=== PATIENT | male | born 1950 | race Caucasian/White ===

== ENCOUNTER 2018-09-16 11:42 | Observation (INO) | payer OTHER, SELFPAY ==
[2018-09-16 12:02] LABS: Absolute Lymphocytes (CBC) 2.9 K/uL (0.7-4.9); Absolute Monocytes 0.4 K/uL (0.1-1.3); Absolute Neutrophil 6.2 K/uL (1.8-8.0); Basophils % 0.8 % (0-1.3); Eosinophils % 0.4 % (0-4.4); Hematocrit 51.9 % (39.6-49.0); Lymphocytes % 30.2 % (15.3-44.8); MPV 10.9 fL (7.6-11.3); Monocytes % 3.9 % (3.3-12.3); RBC Red Blood Cell Count 5.62 M/uL (4.33-5.43)
[2018-09-16 12:06] LABS: Protime INR 0.88
[2018-09-16] MEDS ORDERED: NA CHLORIDE 0.9% 500 ML ONE (12:09)
[2018-09-16 12:26] LABS: ALT/SGPT 20 U/L (12-78); AST/SGOT 21 U/L (15-37); Albumin 3.8 g/dL (3.4-5.0); Alkaline Phosphatase 49 U/L (45-117); BUN Blood Urea Nitrogen 19 mg/dL (7-18); Bicarbonate 18 mmol/L (21-32); Bilirubin Direct < 0.1 mg/dL (0-0.2); Bilirubin Total 0.6 mg/dL (0.2-1.0); CKMB Creatine Kinase MB 1.6 ng/mL (0.3-3.6); Creatine Phosphokinase 107 U/L (39-308); Glucose Level 182 mg/dL (74-106); Lipase 241 U/L (73-393); Magnesium 2.5 mg/dL (1.8-2.4); Potassium 4.6 mmol/L (3.5-5.1); Protein, Total 7.5 g/dL (6.4-8.2); Sodium Level 140 mmol/L (136-145); Troponin (Emerg Dept Use Only) < 0.02 ng/mL (0.0-0.045)
--- NOTE | 2018-09-16 12:39 | RAD REPORT ---
EXAM DESCRIPTION: CT - Head Brain Wo Cont - 09/16/2018 12:21 pm CLINICAL HISTORY: Syncope COMPARISON: None TECHNIQUE: Computed axial tomography of the head was obtained. IV contrast was not requested. All CT scans are performed using dose optimization technique as appropriate and may include automated exposure control or mA/KV adjustment according to patient size. FINDINGS: An intracranial bleed is not seen . The ventricles are normal in caliber. No extra-axial fluid collection is noted. Mild low-density areas within periventricular, deep and sub cortical white matter likely represent ischemic changes secondary to small vessel disease. Fluid within the sinuses/ mastoids is not seen. IMPRESSION: No acute intracranial abnormality is seen. If patient's symptoms persist MRI of the bra in would be recommended.
--- NOTE | 2018-09-16 13:28 | ER ---
Nurse's Notes [facility] Name: Jax Flynn Age: 68 yrs Sex: Male : 1950 Arrival Date: 09/16/2018 Time: 11:46 Bed 3 Private MD: Diagnosis: Altered mental status, unspecified;Syncope and collapse Presentation: 09/16 11:40 Presenting complaint: EMS states: pt family/friends called EMS after pt was complaining sg of Chest Pain, became confused and fell to the ground, reports no LOC, but pt difficult to arouse, reports only responds to painful stimuli, EMS reports that a bag of marijuana was found on the pt in his pants, marijuana remains in the ED until PD can come to the department for collection. Transition of care: patient was not received from another setting of care. Onset of symptoms was September 16, 2018. Risk Assessment: Do you want to hurt yourself or someone else? Patient reports no desire to harm self or others. Initial Sepsis Screen: Does the patient meet any 2 criteria? No. Patient's initial sepsis screen is negative. Does the patient have a suspected source of infection? No. Patient's initial sepsis screen is negative. Care prior to arrival: None. 11:40 Method Of Arrival: EMS: [facility] sg 11:40 Acuity: GORDON 3 sg 11:45 Acuity: GORDON 2 hb Triage Assessment: 11:40 General: Appears in no apparent distress. slender, Behavior is drowsy, uncooperative. sv Pain: Unable to use pain scale. Patient is disoriented. Does not appear to understand pain scale. FLACC scale score is 0 out of 10. Neuro: Level of Consciousness is confused, lethargic, Moves all extremities. Full function. Respiratory: Airway is patent Respiratory effort is even, unlabored, Respiratory pattern is regular, symmetrical. Derm: Skin is normal. Historical: - Allergies: 12:05 No Known Allergies; sg - Home Meds: 12:05 Unable to obtain [Active]; sg - PMHx: 12:05 Unable to obtain; sg - PSHx: 12:05 Unable to obtain; sg - Immunization history:: Adult Immunizations unknown. - Social history:: Smoking status: Patient/guardian denies using tobacco. - Ebola Screening: : Patient negative for fever greater than or equal to 101.5 degrees Fahrenheit, and additional compatible Ebola Virus Disease symptoms Patient denies exposure to infectious person Patient denies travel to an Ebola-affected area in the 21 days before illness onset No symptoms or risks identified at this time. - Family history:: not pertinent. - Hospitalizations: : No recent hospitalization is reported. Screenin:00 Fall Risk No fall in past 12 months (0 pts). No secondary diagnosis (0 pts). IV access sv (20 points). Ambulatory Aid- None/Bed Rest/Nurse Assist (0 pts). Gait- Normal/Bed Rest/Wheelchair (0 pts) Mental Status- Overestimates/Forgets Limitations (15 pts.). Total Mcgowan Fall Scale indicates Low Risk Score (25-44 pts). Fall prevention measures have been instituted. Side Rails Up X 2 Placed close to Nursing Station Frequent Obs/Assesments occuring As available Patient and Family Educated on Fall Prevention Program and strategies. 14:27 Abuse screen: Denies threats or abuse. Denies injuries from another. Nutritional sv screening: No deficits noted. Tuberculosis screening: No symptoms or risk factors identified. Assessment: 12:00 Reassessment: [employer] at bedside speaking with the pt and obtaining the marijuana. sv 12:15 Neuro: Level of Consciousness is awake, alert, obeys commands, Oriented to person, sv place, time, situation, Moves all extremities. Full function. Respiratory: Airway is patent Respiratory effort is even, unlabored, Respiratory pattern is regular, symmetrical. 12:30 Reassessment: Patient appears in no apparent distress at this time. Patient and/or sv family updated on plan of care and expected duration. Pain level reassessed. Patient is alert, oriented x 3, equal unlabored respirations, skin warm/dry/pink. 13:38 Reassessment: Patient and/or family updated on plan of care and expected duration. Pain sv level reassessed. Patient is alert, oriented x 3, equal unlabored respirations, skin warm/dry/pink. GI: Pt is actively vomiting clear fluid. 14:00 Reassessment: Patient appears in no apparent distress at this time. Patient and/or sg family updated on plan of care and expected duration. Pain level reassessed. at bedside, awaiting a call back from Neftali LEROY at this time, pt states understanding. Vital Signs: 12:05 BP 170 / 92; Pulse 88; Resp 18; Temp 98.1(TE); Pulse Ox 98% on R/A; sg 12:26 BP 162 / 95; Pulse 67; Resp 18; Pulse Ox 99% ; sv 13:49 BP 142 / 88; Pulse 61; Resp 18; Pulse Ox 98% ; sv 14:28 BP 144 / 80; Pulse 62; Resp 18; Pulse Ox 97% ; sv ED Course: 11:40 Initial lab(s) drawn, by me, sent to lab. Inserted saline lock: 18 gauge in right sv forearm, using aseptic technique. Blood collected. Flushed right forearm with 5 ml normal saline. 11:40 Patient has correct armband on for positive identification. Bed in low position. Side sv rails up X2. Seizure precautions initiated. Pulse ox on. NIBP on. 11:46 Patient arrived in ED. rn 11:46 Francisco Babcock MD is Attending Physician. rn 12:00 Arm band placed on. sv 12:03 Triage completed. sg 12:16 Suellen Prieto RN is Primary Nurse. sv 12:21 CT completed. Pt tolerated procedure poorly. Patient moved to CT via stretcher. Patient eh moved back from CT. 12:22 CT Head Brain wo Cont In Process Unspecified. EDMS 12:29 Patient moved back from CT. sv 13:27 Elisha Colin MD is Hospitalizing Provider. rn 14:27 No provider procedures requiring assistance completed. Patient admitted, IV remains in sv place. intact. Administered Medications: 12:00 Drug: NS 0.9% 500 ml Route: IV; Rate: bolus; Site: right forearm; sv 12:30 Follow up: Response: No adverse reaction; IV Status: Completed infusion; IV Intake: sv 500ml 13:41 Drug: Zofran 4 mg Route: IVP; Site: right forearm; sv 14:00 Follow up: Response: No adverse reaction; Marked relief of symptoms; Nausea is decreasedsv Point of Care Testing: Blood Glucose: 12:05 Blood Glucose: 181 mg/dL; sg Ranges: Intake: 12:30 IV: 500ml; Total: 500ml. sv Outcome: 13:28 Decision to Hospitalize by Provider. rn 14:26 Admitted to Tele accompanied by tech, via stretcher, room 232, with chart, Report sv called to Goldy LEROY 14:26 Condition: stable 14:26 Instructed on the need for admit. 14:28 Patient left the ED. sv Signatures: Dispatcher [employer] Suellen Chamorro RN RN sv Gay, Steven, RN RN sg Hagler, Ervin eh Nieto, Roman, MD MD rn Baxter, Heather, RN RN Corrections: (The following items were deleted from the chart) 13:49 12:26 Pulse 67bpm; Resp 18bpm; Pulse Ox 99%; sv sv 13:51 13:49 Pulse 61bpm; Resp 18bpm; Pulse Ox 98%; sv sv
--- NOTE | 2018-09-16 13:28 | EDPHYS ---
Physician Documentation [facility] Name: Jax Flynn Age: 68 yrs Sex: Male : 1950 Arrival Date: 09/16/2018 Time: 11:46 Bed 3 Private MD: ED Physician Francisco Babcock HPI: 09/16 13:11 This 68 yrs old Male presents to ER via EMS with complaints of Altered Mental rn Status. 13:11 The patient presents with decreased responsiveness. Onset: The symptoms/episode rn began/occurred just prior to arrival. Possible causes: unknown. Associated signs and symptoms: Pertinent negatives: abdominal pain, chest pain, headache, shortness of breath, vomiting, weakness. Current symptoms: In the emergency department the patient's symptoms have improved. The patient has not experienced similar symptoms in the past. reports seated, watching tv, became unresponsive, unsure if just passed out or had seizure, no hx of seizures, denies ETOH, + smokes marijuana but no other drugs, found with marijuana in his pocket. No chest pain or preceding symptoms. . Historical: - Allergies: 12:05 No Known Allergies; sg - Home Meds: 12:05 Unable to obtain [Active]; sg - PMHx: 12:05 Unable to obtain; sg - PSHx: 12:05 Unable to obtain; sg - Immunization history:: Adult Immunizations unknown. - Social history:: Smoking status: Patient/guardian denies using tobacco. - Ebola Screening: : Patient negative for fever greater than or equal to 101.5 degrees Fahrenheit, and additional compatible Ebola Virus Disease symptoms Patient denies exposure to infectious person Patient denies travel to an Ebola-affected area in the 21 days before illness onset No symptoms or risks identified at this time. - Family history:: not pertinent. - Hospitalizations: : No recent hospitalization is reported. ROS: 13:11 Constitutional: Negative for fever, chills, and weight loss, Eyes: Negative for injury, rn pain, redness, and discharge, Neck: Negative for injury, pain, and swelling, Cardiovascular: Negative for chest pain, palpitations, and edema, Respiratory: Negative for shortness of breath, cough, wheezing, and pleuritic chest pain, Abdomen/GI: Negative for abdominal pain, nausea, vomiting, diarrhea, and constipation, MS/Extremity: Negative for injury and deformity, Skin: Negative for injury, rash, and discoloration, Neuro: Negative for headache, weakness, numbness, tingling Exam: 13:11 Constitutional: This is a well developed, well nourished patient who is awake, alert, rn and in no acute distress. Head/Face: Normocephalic, atraumatic. Eyes: Pupils equal round and reactive to light, extra-ocular motions intact. Lids and lashes normal. Conjunctiva and sclera are non-icteric and not injected. Cornea within normal limits. Periorbital areas with no swelling, redness, or edema. ENT: dry MM Cardiovascular: Regular rate and rhythm with, No pulse deficits. Respiratory: Lungs have equal breath sounds bilaterally, clear to auscultation. No increased work of breathing, no retractions or nasal flaring. Abdomen/GI: soft, non-tender MS/ Extremity: Pulses equal, no cyanosis. Neurovascular intact. Full, normal range of motion. Equal circumference. Neuro: Awake and alert, GCS 15, oriented to person, place, time, and situation. Cranial nerves II-XII grossly intact. Motor strength 5/5 in all extremities. Sensory grossly intact. Cerebellar exam normal. Normal gait. Vital Signs: 12:05 BP 170 / 92; Pulse 88; Resp 18; Temp 98.1(TE); Pulse Ox 98% on R/A; sg 12:26 BP 162 / 95; Pulse 67; Resp 18; Pulse Ox 99% ; sv 13:49 BP 142 / 88; Pulse 61; Resp 18; Pulse Ox 98% ; sv 14:28 BP 144 / 80; Pulse 62; Resp 18; Pulse Ox 97% ; sv MDM: 11:46 Patient medically screened. rn 13:26 Differential Diagnosis: CVA, electrolyte abnormality, alcohol intoxication, rn hypoglycemia, intracranial bleed, overdose, pneumonia, sepsis, UTI, volume depletion, seizure. Data reviewed: vital signs, nurses notes, lab test result(s), EKG, radiologic studies, CT scan, and as a result, I will admit patient. Counseling: I had a detailed discussion with the patient and/or guardian regarding: the historical points, exam findings, and any diagnostic results supporting the discharge/admit diagnosis, lab results, radiology results, the need for further work-up and treatment in the hospital. Response to treatment: the patient's symptoms have markedly improved after treatment, and as a result, I will admit patient. Admission orders: after a detailed discussion of the patient's condition and case, the admit orders are written by me. ED course: UNclear etiology of event, syncope vs seizure, will admit for observation and cardiac w/u. . 09/16 11:48 Order name: Basic Metabolic Panel; Complete Time: 12:50 rn 09/16 11:48 Order name: CBC with Diff; Complete Time: 12:30 rn 09/16 11:48 Order name: Ckmb; Complete Time: 12:50 rn 09/16 11:48 Order name: CPK; Complete Time: 12:50 rn 09/16 11:48 Order name: Hepatic Function; Complete Time: 12:50 09/16 11:48 Order name: Lipase; Complete Time: 12:50 rn 09/16 11:48 Order name: Magnesium; Complete Time: 12:50 rn 09/16 11:48 Order name: Protime (+inr); Complete Time: 12:30 rn 09/16 11:48 Order name: Ptt, Activated; Complete Time: 12:30 09/16 11:48 Order name: Troponin (emerg Dept Use Only); Complete Time: 12:50 rn 09/16 11:48 Order name: ETOH Level; Complete Time: 12:30 09/16 11:48 Order name: Urine Drug Screen 09/16 11:48 Order name: Acetaminophen; Complete Time: 12:50 09/16 11:48 Order name: Salicylate; Complete Time: 12:30 rn 09/16 11:48 Order name: CT Head Brain wo Cont; Complete Time: 12:50 09/16 11:48 Order name: EKG; Complete Time: 11:49 09/16 11:48 Order name: Cardiac monitoring; Complete Time: 11:57 09/16 11:48 Order name: EKG - Nurse/Tech; Complete Time: 11:57 09/16 11:48 Order name: IV Saline Lock; Complete Time: 11:57 09/16 11:48 Order name: Labs collected and sent; Complete Time: 11:57 09/16 11:48 Order name: NPO; Complete Time: 11:57 09/16 11:48 Order name: O2 Per Protocol; Complete Time: 11:57 09/16 11:48 Order name: O2 Sat Monitoring; Complete Time: 11:57 rn 09/16 11:48 Order name: Urine Dipstick-Ancillary (obtain specimen); Complete Time: 13:46 rn 09/16 13:56 Order name: Urine Dipstick--Ancillary (enter results) eb 09/16 14:01 Order name: Urine Dipstick-Ancillary EDMS Administered Medications: 12:00 Drug: NS 0.9% 500 ml Route: IV; Rate: bolus; Site: right forearm; sv 12:30 Follow up: Response: No adverse reaction; IV Status: Completed infusion; IV Intake: sv 500ml 13:41 Drug: Zofran 4 mg Route: IVP; Site: right forearm; sv 14:00 Follow up: Response: No adverse reaction; Marked relief of symptoms; Nausea is decreasedsv Point of Care Testing: Blood Glucose: 12:05 Blood Glucose: 181 mg/dL; sg Ranges: Critical Glucose Levels:Adult <50 mg/dl or >400 mg/dl <40 mg/dl or >180 mg/dl Disposition: 09/16/18 13:28 Hospitalization ordered by Elisha Colin for Observation. Preliminary diagnosis are Altered mental status, unspecified, Syncope and collapse. - Bed requested for Telemetry/MedSurg (observation). - Status is Observation. sv - Condition is Stable. - Problem is new. - Symptoms have improved. UTI on Admission? No Signatures: Dispatcher [employer] EDMS Suellen Prieto RN RN sv Gay, Steven, RN RN sg Nieto, Roman, MD MD rn Botello, Elizabeth eb Corrections: (The following items were deleted from the chart) 13:53 13:28 Hospitalization Ordered by Elisha Colin MD for Observation. Preliminary diagnosis eb is Altered mental status, unspecified; Syncope and collapse. Bed requested for Telemetry/MedSurg (observation). Status is Observation. Condition is Stable. Problem is new. Symptoms have improved. UTI on Admission? No. rn 14:28 13:53 09/16/2018 13:28 Hospitalization Ordered by Elisha Colin MD for Observation. sv Preliminary diagnosis is Altered mental status, unspecified; Syncope and collapse. Bed requested for Telemetry/MedSurg (observation). Status is Observation. Condition is Stable. Problem is new. Symptoms have improved. UTI on Admission? No. eb
[2018-09-16] MEDS ORDERED: ONDANSETRON 4 MG/2 ML VIAL ONE (13:48)
[2018-09-16 14:01] LABS: Urine Blood TRACE (NEG); Urine Glucose NEGATIVE (NEG); Urine Protein 1+ (NEG); Urine Specific Gravity 1.025 (1.005-1.030)
[2018-09-16 14:14] LABS: Barbiturates NEGATIVE (NEGATIVE); Benzodiazepines NEGATIVE (NEGATIVE); Cocaine NEGATIVE (NEGATIVE); METHAMPHETAM NEGATIVE (NEGATIVE); Methadone NEGATIVE (NEGATIVE); Opiates NEGATIVE (NEGATIVE); Phencyclidine NEGATIVE (NEGATIVE); THC Cannibis POSITIVE (NEGATIVE)
[2018-09-16] MEDS ORDERED: HYDRALAZINE HCL 20 MG/ML VIAL IV PRN (14:43)
[2018-09-16] MEDS ORDERED: ONDANSETRON 4 MG/2 ML VIAL IV PRN (14:43)
[2018-09-16] MEDS ORDERED: ACETAMINOPHEN 500 MG TAB PO PRN (14:43)
[2018-09-16] MEDS: NA CHLORIDE 0.9% 1,000 ML IV SCH ×2 (14:43→21:11)
[2018-09-16] MEDS ORDERED: INFLUENZA VACCINE (for 3y+) 0.5 ML DOSE IMVAC ONE (19:00)
[2018-09-16] MEDS ORDERED: PNEUMOCOCCAL VACCINE 0.5 ML IMVAC ONE (19:00)
[2018-09-16] MEDS: IPRATROPIUM BROM 0.5MG/2.5ML NEB SCH (20:00)
[2018-09-16] MEDS: ALBUTEROL 2.5 MG/3 ML NEB SOL NEB SCH (20:00)
--- NOTE | 2018-09-17 01:58 | HP ---
Date of Admission: 09/16/2018 Chief Complaint: Generalized weakness, fall, possible seizure. History Of Present Illness: The patient is a 68-year-old male with no significant past medical history, who was in his usual state of health until day of admission when he was found unresponsive, fell off the couch at home by his , description of possible seizure-type activity. The patient was confused and does not remember the ambulance ride to the hospital. The patient did become more alert and oriented in the hospital. His workup revealed elevated creatinine level. He was found to have some marijuana on his person, which was confiscated by the authorities. His UDS was positive for THC screen. Alcohol level was 0. The patient's head CT scan was negative. No other significant complaints. The patient's symptoms were constant, moderate, progressively worsening. Past Medical History: None. Past Surgical History: Had some minor knee trauma as a child, which required some repair. Allergies: NO KNOWN DRUG ALLERGIES. Medications: The patient is not taking any medications at home. Family History: The patient specifically denies any diabetes, high blood pressure, coronary artery disease, or cancer that runs in the family. Social History: The patient is , has children, retired. Lives at home. Independent in his activities of daily living. Does report smoking half a pack per day since the age of 19. Denies any alcohol use. Does admit to smoking marijuana. Denies any illicit drug use. Review of Systems: An 11-point system reviewed, negative except as per HPI. The patient has no previous history of seizures. Physical Examination: Vital Signs: Blood pressure 170/92, pulse 88, respirations 18, temperature 98.1 , O2 98% on room air. General: Awake, alert, oriented x3. Elderly male, appears older than stated age. Disheveled. HEENT: Normocephalic, atraumatic. PERRLA. EOMI. Dry mucous membranes. Oropharynx is clear. Conjunctivae anicteric. Poor dentition. Neck: Supple. No JVD. Trachea midline. CV: S1, S2. Regular rate and rhythm. Peripheral pulses are weak bilaterally. Respiratory: Diminished breath sounds. The patient is wheezing. No use of accessory muscles. No stridor. Gastrointestinal: Abdomen is soft, nontender, nondistended. Positive bowel sounds. No guarding or rigidity. Extremities: No clubbing, cyanosis, or edema. No calf tenderness. Neuro: Cranial nerves 2-12 intact grossly. No focal neurological deficits. Strength is 5/5 bilateral upper and lower extremities. Sensation intact to light touch. Psych: Mood is okay. Affect is flat. Insight and judgment are poor. Skin: No rashes. Normal skin turgor. Labs: UDS is negative. Acetaminophen level less than 2. Serum alcohol level less than 3. UA shows trace blood, negative nitrite, negative leukocyte esterase. Sodium 140, potassium 4.6, chloride 109, CO2 18, BUN 19, creatinine 1.37, glucose 182, calcium 8.5, magnesium 2.5. INR 0.88. WBC 9.6, H and H 16.9 and 51.1, platelets 203, neutrophils 64%. CT scan of the head personally reviewed, shows no acute intracranial abnormality. No fluid seen within the sinuses. Assessment And Plan: A 68-year-old male with. 1. Possible seizure episode. We will place on seizure precautions. We will observe for now. 2. Acute metabolic encephalopathy, may be related to seizure or marijuana use , now back to baseline. 3. Syncope and collapse, unclear etiology. We will place on telemetry. 4. Acute kidney injury. The patient received 0.5 L bolus in the ER. We will continue with IV fluids, likely due to prerenal azotemia. 5. Hypermagnesemia. 6. Nicotine dependence with cigarette smoking. Counseled. The patient has been smoking for over 50 years. 7. Marijuana abuse. Counseled. 8. Deep vein thrombosis prophylaxis SCDs. Plan: Admit the patient to Med-Surg, place as observation. Likely discharge once condition is improved in the next 24 hours depending on his kidney function and any recurrent seizures. /CLAY Voice ID: [id number] MTDPatricia
[2018-09-17] MEDS: ALBUTEROL 2.5 MG/3 ML NEB SOL NEB SCH ×2 (02:00→08:00)
[2018-09-17] MEDS: IPRATROPIUM BROM 0.5MG/2.5ML NEB SCH ×2 (02:00→08:00)
[2018-09-17 05:14] LABS: Absolute Lymphocytes (CBC) 2.4 K/uL (0.7-4.9); Absolute Monocytes 0.6 K/uL (0.1-1.3); Absolute Neutrophil 5.7 K/uL (1.8-8.0); Basophils % 0.7 % (0-1.3); Eosinophils % 0.6 % (0-4.4); Hematocrit 42.7 % (39.6-49.0); Lymphocytes % 26.9 % (15.3-44.8); MPV 10.2 fL (7.6-11.3); Monocytes % 6.3 % (3.3-12.3)
[2018-09-17] MEDS: NA CHLORIDE 0.9% 1,000 ML IV SCH (05:25)
[2018-09-17 05:40] LABS: Albumin 3.6 g/dL (3.4-5.0); Bilirubin Total 0.8 mg/dL (0.2-1.0); Magnesium 2.2 mg/dL (1.8-2.4); Potassium 3.5 mmol/L (3.5-5.1); Protein, Total 6.7 g/dL (6.4-8.2)
--- NOTE | 2018-09-17 10:55 | EKG ---
Test Date: 2018-09-16 Test Time: 11:46:45 Director Medical: MEASUREMENT RESULTS: Intervals: Rate: 72 AR: 138 QRSD: 88 QT: 384 QTc: 420 [place]: P: 67 AR: 138 QRS: 86 T: 72 INTERPRETIVE STATEMENTS: Normal sinus rhythm Normal ECG No previous ECG available for comparison Electronically Signed On 09-17-18 10:53:49 [employer] by eJromy Camacho
--- NOTE | 2018-09-18 16:20 | DS ---
Date of Discharge: 09/17/2018 Discharge Diagnoses: 1. Acute metabolic encephalopathy. 2. Possible seizure episode. 3. Acute kidney injury, resolved. 4. Metabolic acidosis, corrected. 5. Hypermagnesemia, resolved. 6. Marijuana abuse. 7. Nicotine dependence with cigarette smoking, counseled. 8. Chronic obstructive pulmonary disease with chronic bronchitis. Hospital Course: The patient is a 68-year-old male who comes in with altered mental status and unresponsiveness following smoking marijuana. did witness some convulsive type activity; however, there was no tongue biting, eye rolling, loss of consciousness. No urinary or fecal incontinence. The patient was brought in the ER. His condition improved. He was back to his baseline. He was awake and alert. There was no further seizure-type activity. He was found to have metabolic acidosis, acute dehydration, and acute kidney injury. The patient was admitted for further evaluation. His UDS was positive for THC. The patient was found to have marijuana on his person, which was confiscated by police. Head CT scan was negative. This was not felt to be seizure activity , likely reaction from marijuana, which may or may not been synthetic. The patient was counseled extensively regarding cessation of tobacco as well as marijuana use. He voiced understanding. The patient was initiated on IV fluids. He did well over the course of the hospital stay. His mental status remained stable. He is back to his baseline. He is able to ambulate without any difficulty. Did not appear septic. The patient was then cleared for discharge. He likely does have undiagnosed COPD and was given breathing treatments, which improved his wheezing. Medications: As per medication reconciliation list. Followup: Follow up with primary care physician in 2 days. Return to ER for worsening condition. Diet: Regular. Activity: As tolerated. Physical Examination: General: Awake, alert, oriented, no acute distress. CV: S1, S2. No murmurs. Respiratory: Moving air well bilaterally. Abdomen: Soft, nontender, nondistended. Positive bowel sounds. Extremities: No clubbing, cyanosis, or edema. Neurologic: Nonfocal SA/MODL Voice ID: [id number] Report ID: [id number]
== END 2018-09-17 11:07 | disposition home or self-care (01) ==
LOC: ER 11:42 → ERHOLD 13:23 → 2ND 14:26
PROVIDERS: ADMIT Family Medicine; ATTEND Family Medicine
DX: G92 Toxic encephalopathy (principal); T40.7X5A Adverse effect of cannabis (derivatives), initial encounter; Y92.009 Unspecified place in unspecified non-institutional (private) residence as the place of occurrence of the external cause; N17.9 Acute kidney failure, unspecified; E87.2 Acidosis; E83.41 Hypermagnesemia; F17.210 Nicotine dependence, cigarettes, uncomplicated; J44.9 Chronic obstructive pulmonary disease, unspecified; Z23 Encounter for immunization
CPT/HCPCS: 96361; 93005; 85025 ×2; 80048; 36415; 80320; 83735 ×2; 82550; 80329 ×2; 84100; 85610; 82962; 80076; 80307 ×8; 85730; 81003; 84484; 82553; 83690; 80053; 70450; 90670; 94760 ×2; 96374; 99285; Q2035; J7030 ×3; J2405; G0009; G0008; G0378 ×2

== ENCOUNTER 2020-02-14 00:48 | Emergency (ER) | payer OTHER ==
[2020-02-14] MEDS ORDERED: NA CHLORIDE 0.9% 1,000 ML ONE (02:30)
[2020-02-14 02:38] LABS: Absolute Lymphocytes (CBC) 1.2 K/uL (0.7-4.9); Basophils % 0.6 % (0-1.3); Hematocrit 44.3 % (39.6-49.0); Lymphocytes % 13.6 % (15.3-44.8); MPV 11.2 fL (7.6-11.3); RBC Red Blood Cell Count 4.91 M/uL (4.33-5.43)
[2020-02-14 02:39] LABS: Protime INR 0.93
[2020-02-14 02:54] LABS: ALT/SGPT 11 U/L (12-78); AST/SGOT 15 U/L (15-37); Albumin 3.5 g/dL (3.4-5.0); Alkaline Phosphatase 44 U/L (45-117); BUN Blood Urea Nitrogen 15 mg/dL (7-18); Bicarbonate 28 mmol/L (21-32); Bilirubin Direct 0.1 mg/dL (0-0.2); Bilirubin Total 0.4 mg/dL (0.2-1.0); Glucose Level 132 mg/dL (74-106); Magnesium 2.1 mg/dL (1.8-2.4); NT PRO-BNP 621 pg/mL (<125); Potassium 4.5 mmol/L (3.5-5.1); Protein, Total 6.6 g/dL (6.4-8.2); Sodium Level 142 mmol/L (136-145); Troponin (Emerg Dept Use Only) < 0.02 ng/mL (0.0-0.045)
--- NOTE | 2020-02-14 03:28 | ER ---
Nurse's Notes [facility] Name: Jax Flynn Age: 69 yrs Sex: Male : 1950 Arrival Date: 02/14/2020 Time: 00:49 Bed 3 Private MD: Diagnosis: Epileptic seizures related to external causes;Weakness;Mastoiditis and related conditions-very mild Presentation: 02/13 00:51 Chief complaint: EMS states: they were toned for seizures and when they came Pt was wh unresponsive. Pt became responsive in ambulance but is a little combative and confused. Pt was found to have a bag of Marijuana. Coronavirus screen: Patient denies a cough. Patient denies shortness of breath or difficulty breathing. Patient denies measured and/or subjective temperature greater than 100.4F prior to today's visit. Patient denies travel on a cruise ship or to a country the [facility] currently lists as an affected area. Patient denies contact with known and/or suspected case of COVID-19. Ebola Screen: Patient negative for fever greater than or equal to 101.5 degrees Fahrenheit, and additional compatible Ebola Virus Disease symptoms Patient denies exposure to infectious person. Initial Sepsis Screen: Does the patient meet any 2 criteria? No. Patient's initial sepsis screen is negative. Does the patient have a suspected source of infection? No. Patient's initial sepsis screen is negative. Risk Assessment: Do you want to hurt yourself or someone else? Patient reports no desire to harm self or others. Onset of symptoms was February 14, 2020. Care prior to arrival: Glucose check: 95. 00:51 Method Of Arrival: EMS: [facility] 00:51 Acuity: GORDON 3 Historical: - Allergies: 00:54 Codeine; - Home Meds: 00:54 Unable to obtain [Active]; wh - PMHx: 00:54 Unable to obtain; - PSHx: 00:54 Unable to obtain; - Immunization history:: Adult Immunizations unknown. - Social history:: Smoking status: Patient reports the use of cigarette tobacco products, Patient uses street drugs, marijuana. - Family history:: not pertinent. Screenin:00 Abuse screen: Denies threats or abuse. Denies injuries from another. Nutritional screening: No deficits noted. Tuberculosis screening: No symptoms or risk factors identified. Fall Risk None identified. Assessment: 01:00 General: Appears in no apparent distress. Behavior is calm, cooperative, appropriate wh for age. Pain: Denies pain. Neuro: Level of Consciousness is awake, alert, obeys commands, Oriented to person, place, time. Neuro: Reports. Cardiovascular: Heart tones S1 S2. Respiratory: Airway is patent Respiratory effort is even, unlabored, Respiratory pattern is regular, symmetrical, Breath sounds are clear bilaterally. GI: Abdomen is flat, non-distended. : No signs and/or symptoms were reported regarding the genitourinary system. EENT: No signs and/or symptoms were reported regarding the EENT system. Derm: Skin is intact, is healthy with good turgor, Skin is pink, warm \T\ dry. normal. Musculoskeletal: Circulation, motion, and sensation intact. 02:30 Reassessment: Patient appears in no apparent distress at this time. No changes from previously documented assessment. Patient and/or family updated on plan of care and expected duration. Pain level reassessed. Patient is alert, oriented x 3, equal unlabored respirations, skin warm/dry/pink. 03:45 Reassessment: Patient appears in no apparent distress at this time. No changes from previously documented assessment. Patient and/or family updated on plan of care and expected duration. Pain level reassessed. Patient is alert, oriented x 3, equal unlabored respirations, skin warm/dry/pink. 04:42 Reassessment: Patient appears in no apparent distress at this time. No changes from previously documented assessment. Patient and/or family updated on plan of care and expected duration. Pain level reassessed. Patient is alert, oriented x 3, equal unlabored respirations, skin warm/dry/pink. Pt will be provided a taxi, tried calling a number of times with no success. Notified Charge Nurse and Addiction Specialist. Vital Signs: 00:51 BP 148 / 69; Pulse 55; Resp 18; Temp 98.3; Pulse Ox 96% ; Weight 72.57 kg; Height 5 ft. 8 in. (172.72 cm); 02:00 BP 105 / 79; Pulse 48; Resp 18; Pulse Ox 96% on R/A; 03:00 BP 130 / 81; Pulse 50; Resp 18; Pulse Ox 100% ; wh 04:30 BP 142 / 72; Pulse 51; Resp 18; Pulse Ox 100% ; wh 00:51 Body Mass Index 24.33 (72.57 kg, 172.72 cm) [place] Coma Score: 01:00 Eye Response: spontaneous(4). Verbal Response: oriented(5). Motor Response: obeys commands(6). Total: 15. ED Course: 00:49 Patient arrived in ED. cf2 00:51 Anitha Weinstein is Primary Nurse. 00:53 Triage completed. 01:00 Seizure precautions initiated. 01:07 Renan Rubalcava MD is Attending Physician. pierce 01:25 Inserted saline lock: 20 gauge in left antecubital area, using aseptic technique. Blood wh collected. 01:30 Patient has correct armband on for positive identification. Placed in gown. Bed in low wh position. Call light in reach. Side rails up X 1. night monitor on. Pulse ox on. NIBP on. 02:00 Arm band placed on right wrist. 03:27 Regulo Jenkins MD is Referral Physician. pierce 04:43 No provider procedures requiring assistance completed. IV discontinued, intact, bleeding controlled, No redness/swelling at site. Administered Medications: 02:22 Drug: NS 0.9% 500 ml Route: IV; Rate: bolus; Site: left antecubital; 04:47 Follow up: Response: No adverse reaction; IV Status: Completed infusion 02:45 Drug: NS 0.9% 1000 ml Route: IV; Rate: 125 ml/hr; Site: left antecubital; 04:47 Follow up: Response: No adverse reaction; IV Status: Completed infusion 03:26 Drug: Keppra 1000 mg Route: IV; Rate: per protocol; Site: left antecubital; 04:47 Follow up: Response: No adverse reaction; IV Status: Completed infusion 04:12 Drug: Rocephin 1 grams Route: IV; Rate: per protocol; Site: left antecubital; 04:46 Follow up: Response: No adverse reaction; IV Status: Completed infusion Outcome: 03:27 Discharge ordered by . pierce 04:43 Discharged to home ambulatory. 04:43 Condition: stable 04:43 Discharge instructions given to patient, Instructed on discharge instructions, follow up and referral plans. medication usage, POC Demonstrated understanding of instructions, follow-up care, medications, POC Prescriptions given X 3. 05:05 Patient left the ED. Signatures: Renan Rubalcava MD MD cha Habalo, Winsy Evelyn Mayo cf2 Corrections: (The following items were deleted from the chart) 04:45 04:42 Reassessment: Patient appears in no apparent distress at this time. No changes wh from previously documented assessment. Patient and/or family updated on plan of care and expected duration. Pain level reassessed. Patient is alert, oriented x 3, equal unlabored respirations, skin warm/dry/pink. wh
--- NOTE | 2020-02-14 03:29 | EDPHYS ---
Physician Documentation [facility] Name: Jax Flynn Age: 69 yrs Sex: Male : 1950 Arrival Date: 02/14/2020 Time: 00:49 Bed 3 Private MD: ED Physician Renan Rubalcava HPI: 02/13 02:03 This 69 yrs old Male presents to ER via EMS with complaints of Seizure. pierce 02:03 The patient presents after having a single isolated seizure, that lasted an unknown pierce period of time. Character of seizure(s): Loss of consciousness: the patient experienced loss of consciousness, Motor activity: generalized. Seizure onset: just prior to arrival. Context: the seizure(s) was witnessed, by family, . Seizure Hx: the patient has no previous seizure history. Associated injury: The patient did not suffer any apparent associated injury. EMS care: none. Current symptoms: Currently, the patient is not experiencing any symptoms, the patient feels back to baseline, no decreased level of consciousness, no confusion, no dysphasia, no headache, no paralysis, no visual changes. The patient has not experienced similar symptoms in the past. Historical: - Allergies: 00:54 Codeine; wh - Home Meds: 00:54 Unable to obtain [Active]; wh - PMHx: 00:54 Unable to obtain; wh - PSHx: 00:54 Unable to obtain; wh - Immunization history:: Adult Immunizations unknown. - Social history:: Smoking status: Patient reports the use of cigarette tobacco products, Patient uses street drugs, marijuana. - Family history:: not pertinent. ROS: 02:05 Constitutional: Negative for fever, chills, and weight loss, Eyes: Negative for injury, pierce pain, redness, and discharge, ENT: Negative for injury, pain, and discharge, Neck: Negative for injury, pain, and swelling, Cardiovascular: Negative for chest pain, palpitations, and edema, Respiratory: Negative for shortness of breath, cough, wheezing, and pleuritic chest pain, Abdomen/GI: Negative for abdominal pain, nausea, vomiting, diarrhea, and constipation, Back: Negative for injury and pain, : Negative for injury, bleeding, discharge, and swelling, MS/Extremity: Negative for injury and deformity, Skin: Negative for injury, rash, and discoloration, Psych: Negative for depression, anxiety, suicide ideation, homicidal ideation, and hallucinations, Allergy/Immunology: Negative for hives, rash, and allergies, Endocrine: Negative for neck swelling, polydipsia, polyuria, polyphagia, and marked weight changes, Hematologic/Lymphatic: Negative for swollen nodes, abnormal bleeding, and unusual bruising. 02:05 Neuro: Positive for seizure activity. Exam: 02:05 Constitutional: This is a well developed, well nourished patient who is awake, alert, pierce and in no acute distress. Head/Face: Normocephalic, atraumatic. Eyes: Pupils equal round and reactive to light, extra-ocular motions intact. Lids and lashes normal. Conjunctiva and sclera are non-icteric and not injected. Cornea within normal limits. Periorbital areas with no swelling, redness, or edema. ENT: Nares patent. No nasal discharge, no septal abnormalities noted. Tympanic membranes are normal and external auditory canals are clear. Oropharynx with no redness, swelling, or masses, exudates, or evidence of obstruction, uvula midline. Mucous membranes moist. Neck: Trachea midline, no thyromegaly or masses palpated, and no cervical lymphadenopathy. Supple, full range of motion without nuchal rigidity, or vertebral point tenderness. No Meningismus. Chest/axilla: Normal chest wall appearance and motion. Nontender with no deformity. No lesions are appreciated. Cardiovascular: Regular rate and rhythm with a normal S1 and S2. No gallops, murmurs, or rubs. Normal PMI, no JVD. No pulse deficits. Respiratory: Lungs have equal breath sounds bilaterally, clear to auscultation and percussion. No rales, rhonchi or wheezes noted. No increased work of breathing, no retractions or nasal flaring. Abdomen/GI: Soft, non-tender, with normal bowel sounds. No distension or tympany. No guarding or rebound. No evidence of tenderness throughout. Back: No spinal tenderness. No costovertebral tenderness. Full range of motion. Male : Normal genitalia with no discharge or lesions. Skin: Warm, dry with normal turgor. Normal color with no rashes, no lesions, and no evidence of cellulitis. MS/ Extremity: Pulses equal, no cyanosis. Neurovascular intact. Full, normal range of motion. Neuro: Awake and alert, GCS 15, oriented to person, place, time, and situation. Cranial nerves II-XII grossly intact. Motor strength 5/5 in all extremities. Sensory grossly intact. Cerebellar exam normal. Normal gait. Psych: Awake, alert, with orientation to person, place and time. Behavior, mood, and affect are within normal limits. 03:22 ECG was reviewed by the Attending Physician. [facility] Vital Signs: 00:51 BP 148 / 69; Pulse 55; Resp 18; Temp 98.3; Pulse Ox 96% ; Weight 72.57 kg; Height 5 ft. 8 in. (172.72 cm); 02:00 BP 105 / 79; Pulse 48; Resp 18; Pulse Ox 96% on R/A; 03:00 BP 130 / 81; Pulse 50; Resp 18; Pulse Ox 100% ; 04:30 BP 142 / 72; Pulse 51; Resp 18; Pulse Ox 100% ; 00:51 Body Mass Index 24.33 (72.57 kg, 172.72 cm) [place] Coma Score: 01:00 Eye Response: spontaneous(4). Verbal Response: oriented(5). Motor Response: obeys commands(6). Total: 15. MDM: 01:07 Patient medically screened. [facility] 02:06 Data reviewed: vital signs, nurses notes, lab test result(s), EKG, radiologic studies, [facility] CT scan, plain films. Data interpreted: revenue cycle consultant: rate is 55 beats/min, rhythm is normal sinus rhythm, Pulse oximetry: is not applicable for this patient encounter. on is 96 %. Test interpretation: by ED physician or midlevel provider: ECG, plain radiologic studies. Counseling: I had a detailed discussion with the patient and/or guardian regarding: the historical points, exam findings, and any diagnostic results supporting the discharge/admit diagnosis, the presence of at least one elevated blood pressure reading (>120/80) during this emergency department visit, lab results, radiology results, the need for outpatient follow up, for definitive care, a neurosurgeon. 03:14 ED course: no hx seizures, pt stable in the er, will review all labs. [facility] 02/13 01:55 Order name: Basic Metabolic Panel 02/13 01:55 Order name: CBC with Diff 02/13 01:55 Order name: LFT's 02/13 01:55 Order name: Magnesium 02/13 01:55 Order name: NT PRO-BNP 02/13 01:55 Order name: PT-INR 02/13 01:55 Order name: Troponin (emerg Dept Use Only) 02/13 02:03 Order name: Acetaminophen [facility] 02/13 02:03 Order name: ETOH Level [facility] 02/13 02:03 Order name: Ptt, Activated [facility] 02/13 02:03 Order name: Salicylate [facility] 02/13 02:03 Order name: Urine Drug Screen [facility] 02/13 02:40 Order name: Protime (+INR); Complete Time: 03:05 EDLA 02/13 02:40 Order name: PTT, Activated Partial Thromb; Complete Time: 03:05 EDLA 02/13 01:55 Order name: CT Head Brain wo Cont 02/13 01:55 Order name: XRAY Chest (1 view) 02/13 02:42 Order name: CBC with Automated Diff; Complete Time: 03:05 EDLA 02/13 02:54 Order name: Salicylates Level; Complete Time: 03:05 EDLA 02/13 02:54 Order name: Alcohol Serum/Plasma; Complete Time: 03:05 EDLA 02/13 02:55 Order name: Basic Metabolic Panel; Complete Time: 03:05 EDLA 02/13 02:55 Order name: Liver (Hepatic) Function; Complete Time: 03:05 EDLA 02/13 02:55 Order name: Troponin (Emerg Dept Use Only); Complete Time: 03:05 EDLA 02/13 02:55 Order name: NT PRO-BNP; Complete Time: 03:05 EDLA 02/13 02:55 Order name: Acetaminophen Level; Complete Time: 03:05 EDLA 02/13 02:55 Order name: Magnesium; Complete Time: 03:05 EDLA 02/13 04:49 Order name: Urine Drug Screen [facility] 02/13 01:55 Order name: EKG; Complete Time: 21:12 02/13 01:55 Order name: Cardiac monitoring; Complete Time: 02:22 02/13 01:55 Order name: EKG - Nurse/Tech; Complete Time: 02:22 02/13 01:55 Order name: IV Saline Lock; Complete Time: 02: 02/13 01:55 Order name: Labs collected and sent; Complete Time: 02: 02/13 01:55 Order name: O2 Per Protocol; Complete Time: 02: 02/13 01:55 Order name: O2 Sat Monitoring; Complete Time: 02/13 02:03 Order name: Urine Dipstick-Ancillary (obtain specimen); Complete Time: 03: [facility] 02/13 02:03 Order name: Seizure Precautions; Complete Time: : pierce EC: Rate is 51 beats/min. Rhythm is regular. QRS Tensed is Normal. VT interval is normal. QRS pierce interval is normal. QT interval is normal. No Q waves. T waves are Normal. No ST changes noted. Clinical impression: Sinus bradycardia. Interpreted by me. Reviewed by me. Administered Medications: 02:22 Drug: NS 0.9% 500 ml Route: IV; Rate: bolus; Site: left antecubital; 04:47 Follow up: Response: No adverse reaction; IV Status: Completed infusion 02:45 Drug: NS 0.9% 1000 ml Route: IV; Rate: 125 ml/hr; Site: left antecubital; 04:47 Follow up: Response: No adverse reaction; IV Status: Completed infusion 03:26 Drug: Keppra 1000 mg Route: IV; Rate: per protocol; Site: left antecubital; 04:47 Follow up: Response: No adverse reaction; IV Status: Completed infusion 04:12 Drug: Rocephin 1 grams Route: IV; Rate: per protocol; Site: left antecubital; 04:46 Follow up: Response: No adverse reaction; IV Status: Completed infusion Disposition: 02/14/20 03:27 Discharged to Home. Impression: Epileptic seizures related to external causes, Weakness, Mastoiditis and related conditions - very mild. - Condition is Stable. - Discharge Instructions: Nonepileptic Seizures, Seizure, Adult, Weakness, Fatigue, Seizure, Adult, [id number], Weakness, [id number], Aspirin and Your Heart. - Prescriptions for Keppra 500 mg Oral Tablet - take 1 tablet by ORAL route every 12 hours; 20 tablet. Folic Acid 1 mg Oral Tablet - take 1 tablet by ORAL route once daily; 30 tablet. Augmentin 875- 125 mg Oral Tablet - take 1 tablet by ORAL route every 12 hours for 10 days; 20 tablet. - Medication Reconciliation Form, Thank You Letter, Antibiotic Education, Prescription Opioid Use form. - Follow up: Private Physician; When: 2 - 3 days; Reason: Recheck today's complaints, Continuance of care, Re-evaluation by your physician. Follow up: Regulo Jenkins; When: 2 - 3 days; Reason: Recheck today's complaints, Continuance of care, Re-evaluation by your physician. - Problem is new. - Symptoms have improved. Signatures: Dispatcher [employer] EDRenan Walton MD MD cha Habalo, Winsy Corrections: (The following items were deleted from the chart) 03:48 03:27 02/14/2020 03:27 Discharged to Home. Impression: Epileptic seizures related to [facility] external causes; Weakness. Condition is Stable. Discharge Instructions: Weakness, Fatigue, Weakness, [id number], Aspirin and Your Heart, Nonepileptic Seizures, Seizure, Adult, Seizure, Adult, [id number]. Prescriptions for Keppra 500 mg Oral Tablet - take 1 tablet by ORAL route every 12 hours; 20 tablet, Folic Acid 1 mg Oral Tablet - take 1 tablet by ORAL route once daily; 30 tablet. and Forms are Medication Reconciliation Form, Thank You Letter, Antibiotic Education, Prescription Opioid Use. Follow up: Private Physician; When: 2 - 3 days; Reason: Recheck today's complaints, Continuance of care, Re-evaluation by your physician. Follow up: Regulo Jenkins; When: 2 - 3 days; Reason: Recheck today's complaints, Continuance of care, Re-evaluation by your physician. Problem is new. Symptoms have improved. [facility] 05:05 03:48 02/14/2020 03:27 Discharged to Home. Impression: Epileptic seizures related to external causes; Weakness; Mastoiditis and related conditions - very mild. Condition is Stable. Discharge Instructions: Weakness, Fatigue, Weakness, [id number], Aspirin and Your Heart, Nonepileptic Seizures, Seizure, Adult, Seizure, Adult, [id number]. Prescriptions for Keppra 500 mg Oral Tablet - take 1 tablet by ORAL route every 12 hours; 20 tablet, Folic Acid 1 mg Oral Tablet - take 1 tablet by ORAL route once daily; 30 tablet. and Forms are Medication Reconciliation Form, Thank You Letter, Antibiotic Education, Prescription Opioid Use. Follow up: Private Physician; When: 2 - 3 days; Reason: Recheck today's complaints, Continuance of care, Re-evaluation by your physician. Follow up: Regulo Jenkins; When: 2 - 3 days; Reason: Recheck today's complaints, Continuance of care, Re-evaluation by your physician. Problem is new. Symptoms have improved. pierce
[2020-02-14] MEDS ORDERED: NA CHLORIDE 0.9% 100 ML IV ONE (03:31)
[2020-02-14] MEDS ORDERED: LEVETIRACETAM 500 MG/5 ML VIAL IV ONE (03:31)
[2020-02-14] MEDS ORDERED: CEFTRIAXONE/SWI 1gm 0 GM/0 ML SYR ONE (04:09)
[2020-02-14] MEDS ORDERED: CEFTRIAXONE/SWI 1gm 1 GM/10 ML SYR ONE (04:18)
[2020-02-14 04:49] LABS: Barbiturates NEGATIVE (NEGATIVE); Benzodiazepines NEGATIVE (NEGATIVE); Cocaine NEGATIVE (NEGATIVE); METHAMPHETAM NEGATIVE (NEGATIVE); Methadone NEGATIVE (NEGATIVE); Opiates NEGATIVE (NEGATIVE); Phencyclidine NEGATIVE (NEGATIVE); THC Cannibis POSITIVE (NEGATIVE)
[2020-02-14 05:37] VITALS: BP 142/72; O2SAT 100
--- NOTE | 2020-02-14 07:27 | RAD REPORT ---
EXAM DESCRIPTION: Purnima Single View02/14/2020 2:37 am CLINICAL HISTORY: Seizure COMPARISON: none FINDINGS: Lungs are hyperaerated. The lungs appear clear of acute infiltrate. The heart is normal size IMPRESSION: No acute abnormalities displayed
--- NOTE | 2020-02-14 16:48 | RAD REPORT ---
EXAM DESCRIPTION: CT - Head Brain Wo Cont - 02/14/2020 6:19 am CLINICAL HISTORY: Seizure COMPARISON: CT head without contrast 09/16/2018 TECHNIQUE: Axial unenhanced CT imaging of the brain. Reformatted coronal and sagittal images obtaine d. This examination was performed according to our departmental dose optimization program, which include s automated exposure control, adjustment of the mA and/or kV according to patient size and/or use of iterative reconstruction technique. FINDINGS: Moderately prominent ventricles and sulci due to cortical loss. Moderate scattered hypoatt enuation throughout the periventricular white matter due to chronic microvascular ischemic change. Th ere is no intracranial bleed. No mass or midline shift. No acute major territorial infarction or hype rdense vessel. No edema. Normal cerebellum and vermis. Fourth ventricle is midline. Normal sella contents. Intraorbital contents appear normal. Clear paranasal sinuses. Mastoid air cells are clear on the righ t side and slightly opacified on left side. Intact skull base and calvarium. There are numerous heter ogeneous nodules within the right posterior parietal occipital scalp, stable. IMPRESSION: 1. Mild to moderate senescent brain changes. No intracranial acute finding. 2. Very mild left mastoid effusion. 3. Indeterminate stable right posterior parietal occipital scalp soft tissue nodules. Electronically signed by: Shiloh Pulido DO 02/14/2020 3:37 AM CDT Due to temporary technical issues with the PACS/Fluency reporting system, reports are being signed by the in house radiologist without review as a courtesy to ensure prompt reporting. The interpreting r adiologist is fully responsible for the content of the report.
== END 2020-02-14 05:05 | disposition home or self-care (01) ==
LOC: ER 00:48
DX: G40.509 Epileptic seizures related to external causes, not intractable, without status epilepticus (principal); R53.1 Weakness; H70.90 Unspecified mastoiditis, unspecified ear
CPT/HCPCS: 96365; 96361; 93005; 85025; 80048; 36415; 80320; 83735; 80329 ×2; 85610; 80076; 80307 ×8; 85730; 84484; 83880; 70450; 71045; 99284; J1953; J0696; J7030

== ENCOUNTER 2020-08-28 13:27 | Emergency (ER) | payer OTHER ==
[2020-08-28] MEDS ORDERED: NA CHLORIDE 0.9% 1,000 ML with FOLIC ACID 1 MG, THIAMINE HCL 100 MG, MULTIVITAMINS INJ ... IV SCH ×4 (14:30)
[2020-08-28 14:34] LABS: Absolute Lymphocytes (CBC) 1.5 K/uL (0.7-4.9); Hematocrit 48.4 % (39.6-49.0); Lymphocytes % 24.6 % (15.3-44.8); RBC Red Blood Cell Count 5.35 M/uL (4.33-5.43)
--- NOTE | 2020-08-28 14:38 | RAD REPORT ---
EXAM DESCRIPTION: CT - Head Brain Wo Cont - 08/28/2020 2:18 pm CLINICAL HISTORY: Confused;Seizure Headache, drowsiness COMPARISON: Head Brain Wo Cont dated 02/14/2020; Head Brain Wo Cont dated 09/16/2018 TECHNIQUE: All CT scans are performed using dose optimization technique as appropriate and may inclu de automated exposure control or mA/KV adjustment according to patient size. FINDINGS: No intracranial hemorrhage, hydrocephalus or extra-axial fluid collection.Mild generalized brain atrophy is present with mild periventricular and deep white matter chronic microvascular ische farida changes.No areas of brain edema or evidence of midline shift. The paranasal sinuses and mastoids are clear. The calvarium is intact. IMPRESSION: No acute intracranial abnormality.
[2020-08-28 14:45] LABS: Protime INR 0.84
[2020-08-28] MEDS ORDERED: levETIRAcetam 1,000 MG in NA CHLORIDE 0.9% 100 ML IV ONE (15:00)
[2020-08-28 15:03] LABS: ALT/SGPT 17 U/L (12-78); AST/SGOT 21 U/L (15-37); Albumin 4.1 g/dL (3.4-5.0); Alkaline Phosphatase 65 U/L (45-117); BUN Blood Urea Nitrogen 19 mg/dL (7-18); Bicarbonate 28 mmol/L (21-32); Bilirubin Direct 0.1 mg/dL (0-0.2); Bilirubin Total 0.7 mg/dL (0.2-1.0); Glucose Level 92 mg/dL (74-106); Potassium 4.2 mmol/L (3.5-5.1); Sodium Level 140 mmol/L (136-145)
--- NOTE | 2020-08-28 17:53 | EDPHYS ---
Physician Documentation [facility] Name: Jax Flynn Age: 70 yrs Sex: Male : 1950 Arrival Date: 08/28/2020 Time: 13:34 Bed 24 Private MD: ED Physician Sharad Bowman HPI: 08/28 14:00 This 70 yrs old Male presents to ER via EMS with complaints of Probable cp Seizure. 14:00 The patient presents after having a single isolated seizure, that lasted an unknown cp period of time, the episode(s) was witnessed, by family. Character of seizure(s): Loss of consciousness: the patient experienced loss of consciousness, Motor activity: generalized, shaking all over, Incontinence: incontinent of bladder. Seizure onset: just prior to arrival. Context: the seizure(s) was witnessed, by family, occurred at home, occurred while the patient was at rest, lying down, Contributing factors: unknown. Seizure Hx: Cause: unknown, Last seizure: The patient's last seizure "not sure", Seizure medications: none. Associated injury: The patient did not suffer any apparent associated injury. 14:00 EMS care: none. Current symptoms: confusion. cp Historical: - Allergies: 13:42 Codeine; vg1 - Home Meds: 13:42 None [Active]; vg1 - PMHx: 13:42 None; vg1 - PSHx: 13:42 None; vg1 - Immunization history:: Adult Immunizations up to date. - Social history:: Smoking status: unknown. ROS: 14:05 Constitutional: Negative for body aches, chills, fever, poor PO intake. cp 14:05 Eyes: Negative for injury, pain, redness, and discharge. cp 14:05 ENT: Negative for ear pain, sore throat, difficulty swallowing, difficulty handling secretions. 14:05 Cardiovascular: Negative for chest pain. 14:05 Respiratory: Negative for cough, shortness of breath, wheezing. 14:05 Abdomen/GI: Negative for abdominal pain, vomiting, diarrhea, constipation. 14:05 Neuro: Positive for confusion, Negative for headache, weakness. 14:05 All other systems are negative. Exam: 14:07 ECG was reviewed by the Attending Physician. cp 14:10 Constitutional: The patient appears in no acute distress, alert, awake, cp non-diaphoretic, non-toxic, well developed, well nourished, unkempt. 14:10 Head/Face: Normocephalic, atraumatic. cp 14:10 Eyes: Pupils: equal, round, and reactive to light and accomodation, Extraocular movements: intact throughout, Conjunctiva: normal, no exudate, no injection, Sclera: no appreciated abnormality, Lids and lashes: appear normal, bilaterally. 14:10 ENT: External ear(s): are unremarkable, Nose: is normal, Mouth: Lips: moist, Oral mucosa: moist, Posterior pharynx: Airway: no evidence of obstruction, patent. 14:10 Neck: C-spine: vertebral tenderness, is not appreciated, crepitus, is not appreciated, ROM/movement: is normal, is supple, without pain, no range of motions limitations. 14:10 Chest/axilla: Inspection: normal, Palpation: is normal, no crepitus, no tenderness. 14:10 Cardiovascular: Rate: normal, Rhythm: regular, Edema: is not appreciated, JVD: is not appreciated. 14:10 Respiratory: the patient does not display signs of respiratory distress, Respirations: normal, no use of accessory muscles, no retractions, labored breathing, is not present, Breath sounds: are clear throughout, no decreased breath sounds. 14:10 Abdomen/GI: Inspection: abdomen appears normal, Palpation: abdomen is soft and non-tender, in all quadrants. 14:10 Back: pain, is absent, ROM is normal. 14:10 Neuro: Orientation: to person, Not oriented to place, time, situation, Mentation: able to follow commands, slow to respond, Motor: moves all fours, strength is normal. Vital Signs: 13:39 BP 158 / 104; Pulse 70; Resp 16; Temp 97.8(O); Pulse Ox 95% on R/A; Pain 0/10; vg1 15:00 BP 177 / 93; Pulse 55; Resp 16; Pulse Ox 99% on R/A; vg1 16:00 BP 166 / 99; Pulse 58; Resp 18; Pulse Ox 100% on R/A; vg1 17:00 BP 166 / 100; Pulse 60; Resp 16; Pulse Ox 98% on R/A; vg1 Kathy Coma Score: 13:44 Eye Response: spontaneous(4). Verbal Response: confused(4). Motor Response: obeys vg1 commands(6). Total: 14. MDM: 13:52 Patient medically screened. 14:00 Differential diagnosis: cerebral vascular accident, drug overdose, cardiac arrhythmia, cp seizure, electrolyte abnormality, ETOH abuse. 17:50 Data reviewed: vital signs, nurses notes, lab test result(s), EKG, radiologic studies, cp CT scan. 17:50 Test interpretation: by ED physician or midlevel provider: ECG. Counseling: I had a cp detailed discussion with the patient and/or guardian regarding: the historical points, exam findings, and any diagnostic results supporting the discharge/admit diagnosis, lab results, radiology results, the need for outpatient follow up, a neurologist, to return to the emergency department if symptoms worsen or persist or if there are any questions or concerns that arise at home. Response to treatment: the patient's symptoms have markedly improved after treatment. ED course: VSS. Patient at alert times 3, appears non-toxic. Will discharge to home for continued monitoring. 08/28 13:54 Order name: Acetaminophen; Complete Time: 15:17 08/28 13:54 Order name: Basic Metabolic Panel; Complete Time: 15:17 08/28 15:17 Interpretation: Normal except: BUN 19; GFR 63. 08/28 13:54 Order name: CBC with Diff; Complete Time: 14:46 08/28 13:54 Order name: ETOH Level; Complete Time: 15:17 08/28 13:54 Order name: Hepatic Function; Complete Time: 15:17 08/28 13:54 Order name: PT-INR; Complete Time: 15:17 08/28 13:54 Order name: Ptt, Activated; Complete Time: 15:17 08/28 13:54 Order name: Salicylate; Complete Time: 15:17 08/28 13:54 Order name: EKG; Complete Time: 13:55 08/28 13:54 Order name: EKG - Nurse/Tech; Complete Time: 14:10 08/28 13:54 Order name: CT Head Brain wo Cont; Complete Time: 14:46 08/28 14:46 Interpretation: Report reviewed. 08/28 13:54 Order name: IV Saline Lock; Complete Time: 13:56 08/28 13:54 Order name: Labs collected and sent; Complete Time: 13:56 cp EC:07 Rate is 56 beats/min. Rhythm is regular. MD interval is normal. QRS interval is normal. cp QT interval is normal. T waves are Inverted in lead aVR. Interpreted by me. Reviewed by me. Administered Medications: 14:39 Drug: Banana Bag - (NS 0.9% 1000 ml, foLIC Acid 1 mg, Thiamine 100 mg, Multivitamin 1 vg1 amp) Route: IV; Rate: calculated rate; Site: right forearm; 19:31 Follow up: IV Status: Completed infusion vg1 15:36 Drug: Keppra 1000 mg Route: IV; Rate: calculated rate; Site: right forearm; vg1 16:00 Follow up: IV Status: Completed infusion vg1 Disposition: 08/29 07:31 Co-signature as Attending Physician, Sharad Bowman MD I agree with the assessment and 4 plan of care. Disposition: 08/28/20 17:52 Discharged to Home. Impression: Epileptic seizures related to external causes. - Condition is Stable. - Discharge Instructions: Seizure, Adult. - Prescriptions for Keppra 500 mg Oral Tablet - take 1 tablet by ORAL route every 12 hours; 20 tablet. - Medication Reconciliation Form, Thank You Letter, Antibiotic Education, Prescription Opioid Use form. - Follow up: Regulo Jenkins MD; When: 1 - 2 days; Reason: Recheck today's complaints. - Problem is new. - Symptoms have improved. Signatures: Dispatcher [employer] EDWY Renan Croft PA PA cp Wadley, Terrence, MD MD tw4 Lexie Bartholomew RN RN vg1 Corrections: (The following items were deleted from the chart) 08/28 18:48 17:52 08/28/2020 17:52 Discharged to Home. Impression: Epileptic seizures related to vg1 external causes. Condition is Stable. Forms are Medication Reconciliation Form, Thank You Letter, Antibiotic Education, Prescription Opioid Use. Follow up: Regulo Jenkins; When: 1 - 2 days; Reason: Recheck today's complaints. Problem is new. Symptoms have improved. cp
--- NOTE | 2020-08-28 17:53 | ER ---
Nurse's Notes [facility] Name: Jax Flynn Age: 70 yrs Sex: Male : 1950 Arrival Date: 08/28/2020 Time: 13:34 Bed 24 Private MD: Diagnosis: Epileptic seizures related to external causes Presentation: 08/28 13:39 Chief complaint: EMS states: Stated patients son witnessed him seize while in bed vg1 asleep. Stated has hx of seizures. Patients BG was 107. Coronavirus screen: Client denies travel out of the [place] in the last 14 days. Ebola Screen: Patient negative for fever greater than or equal to 101.5 degrees Fahrenheit, and additional compatible Ebola Virus Disease symptoms. Initial Sepsis Screen: Does the patient meet any 2 criteria? No. Patient's initial sepsis screen is negative. Does the patient have a suspected source of infection? No. Patient's initial sepsis screen is negative. Risk Assessment: Do you want to hurt yourself or someone else? Patient reports no desire to harm self or others. Onset of symptoms was August 28, 2020. 13:39 Method Of Arrival: EMS: [facility] vg1 13:39 Acuity: GORDON 3 vg1 Historical: - Allergies: 13:42 Codeine; vg1 - Home Meds: 13:42 None [Active]; vg1 - PMHx: 13:42 None; vg1 - PSHx: 13:42 None; vg1 - Immunization history:: Adult Immunizations up to date. - Social history:: Smoking status: unknown. Screenin:44 Abuse screen: Denies threats or abuse. Nutritional screening: No deficits noted. vg1 Tuberculosis screening: No symptoms or risk factors identified. Fall Risk No fall in past 12 months (0 pts). No secondary diagnosis (0 pts). IV access (20 points). Ambulatory Aid- None/Bed Rest/Nurse Assist (0 pts). Gait- Weak (10 pts.). Mental Status- Overestimates/Forgets Limitations (15 pts.). Total Mcgowan Fall Scale indicates Low Risk Score (25-44 pts). Fall prevention measures have been instituted. Side Rails Up X 2 Placed close to Nursing Station. Assessment: 13:30 General: Appears in no apparent distress. comfortable, Behavior is calm, cooperative. vg1 Pain: Denies pain. Neuro: Level of Consciousness is awake, alert, confused, Oriented to person, time. Cardiovascular: Patient's skin is warm and dry. Respiratory: Airway is patent Respiratory effort is even, unlabored, Respiratory pattern is regular, symmetrical. GI: No signs and/or symptoms were reported involving the gastrointestinal system. : No signs and/or symptoms were reported regarding the genitourinary system. EENT: No signs and/or symptoms were reported regarding the EENT system. Derm: Skin is pink, warm \T\ dry. Musculoskeletal: Circulation, motion, and sensation intact. 15:37 Reassessment: Patient appears in no apparent distress at this time. Patient and/or vg1 family updated on plan of care and expected duration. Pain level reassessed. Patient is alert, oriented x 3, equal unlabored respirations, skin warm/dry/pink. Patient denies pain at this time. Patient states feeling better. 16:06 Reassessment: Patient appears in no apparent distress at this time. Patient and/or vg1 family updated on plan of care and expected duration. Pain level reassessed. Patient resting with eyes closed. 17:24 Reassessment: Asked patient to state name and ; patient was able to. Asked if vg1 patient knew where they were and patient was unable to. Patient stated was tired and wanted to go home. 17:46 Reassessment: Went into patients room and patient asked where he was. I replied where vg1 do you think you are, and patient responded, I'm in the hospital. I asked patient to stated name and and patient was able to. Notified provider. 17:53 Reassessment: Patient up for d/c. Called patients to notify of d/c, stated she vg1 will be here in about 20 minutes. Vital Signs: 13:39 BP 158 / 104; Pulse 70; Resp 16; Temp 97.8(O); Pulse Ox 95% on R/A; Pain 0/10; vg1 15:00 BP 177 / 93; Pulse 55; Resp 16; Pulse Ox 99% on R/A; vg1 16:00 BP 166 / 99; Pulse 58; Resp 18; Pulse Ox 100% on R/A; vg1 17:00 BP 166 / 100; Pulse 60; Resp 16; Pulse Ox 98% on R/A; vg1 [place] Coma Score: 13:44 Eye Response: spontaneous(4). Verbal Response: confused(4). Motor Response: obeys vg1 commands(6). Total: 14. ED Course: 13:34 Patient arrived in ED. vg1 13:38 Renan Croft PA is PHCP. cp 13:38 Sharad Bowman MD is Attending Physician. cp 13:39 Lexie Bartholomew, RN is Primary Nurse. vg1 13:41 Triage completed. vg1 13:44 Seizure precautions initiated. vg1 13:45 Arm band placed on. vg1 13:45 Inserted saline lock: 20 gauge in right forearm, using aseptic technique. Blood jp3 collected. 13:45 Initial lab(s) drawn, by me, sent to lab. Patient maintains SpO2 saturation greater jp3 than 95% on room air. 14:[address] via stretcher. vg1 14:10 Bed in low position. Call light in reach. Side rails up X2. Verbal reassurance given. jp3 equipment monitor phototypesetting on. Pulse ox on. NIBP on. 14:10 EKG done, by ED staff, reviewed by Renan DEVINE. jp3 14:18 CT Head Brain wo Cont In Process Unspecified. EDMS 17:51 Regulo Jenkins MD is Referral Physician. cp 18:47 No provider procedures requiring assistance completed. IV discontinued, intact, vg1 bleeding controlled, No redness/swelling at site. Pressure dressing applied. Administered Medications: 14:39 Drug: Banana Bag - (NS 0.9% 1000 ml, foLIC Acid 1 mg, Thiamine 100 mg, Multivitamin 1 vg1 amp) Route: IV; Rate: calculated rate; Site: right forearm; 19:31 Follow up: IV Status: Completed infusion vg1 15:36 Drug: Keppra 1000 mg Route: IV; Rate: calculated rate; Site: right forearm; vg1 16:00 Follow up: IV Status: Completed infusion vg1 Outcome: 17:52 Discharge ordered by . cp 18:48 Discharged to home via wheelchair. vg1 18:48 Condition: good 18:48 Discharge instructions given to patient, Instructed on discharge instructions, the need for admit, medication usage, Demonstrated understanding of instructions, follow-up care, medications, Prescriptions given X 1. 18:48 Patient left the ED. vg1 Signatures: Dispatcher [employer] EDMS Renan Croft PA PA cp Pisarski, Jacob jp3 Lexie Bartholomew RN RN vg1 Corrections: (The following items were deleted from the chart) 13:43 13:39 Chief complaint: EMS states: Stated patients son witnessed him seize while in bed vg1 asleep. Stated has hx of seizures. vg1
[2020-08-28 18:53] VITALS: TEMP 97.8
[2020-08-28 18:57] VITALS: BP 166/100; O2SAT 98
== END 2020-08-28 18:48 | disposition home or self-care (01) ==
LOC: ER 13:27
DX: G40.509 Epileptic seizures related to external causes, not intractable, without status epilepticus (principal); Z88.5 Allergy status to narcotic agent
CPT/HCPCS: 96365; 85025; 80048; 36415; 80320; 80329 ×2; 85610; 80076; 85730; 70450; 99285; 96366; J3411; J1953; J7030; 93005

== ENCOUNTER 2020-11-13 11:00 | Emergency (ER) | payer OTHER ==
[2020-11-13 12:03] LABS: Absolute Lymphocytes (CBC) 0.8 K/uL (0.7-4.9); Basophils % 0.6 % (0-1.3); Hematocrit 47.6 % (39.6-49.0); Lymphocytes % 10.9 % (15.3-44.8); MPV 10.7 fL (7.6-11.3); RBC Red Blood Cell Count 5.27 M/uL (4.33-5.43)
[2020-11-13 12:24] LABS: Protime INR 0.9
[2020-11-13] MEDS ORDERED: ACETAMINOPHEN 500 MG TAB ONE (12:39)
[2020-11-13 12:45] LABS: Urine Blood Trace-intact (Negative); Urine Glucose Negative (Negative); Urine Protein 1+ (Negative); Urine Specific Gravity >=1.030 (1.005-1.030)
[2020-11-13 12:47] LABS: ALT/SGPT 18 U/L (12-78); AST/SGOT 19 U/L (15-37); Albumin 3.9 g/dL (3.4-5.0); Alkaline Phosphatase 54 U/L (45-117); BUN Blood Urea Nitrogen 17 mg/dL (7-18); Bicarbonate 28 mmol/L (21-32); Bilirubin Direct 0.1 mg/dL (0-0.2); Bilirubin Total 0.4 mg/dL (0.2-1.0); Glucose Level 101 mg/dL (74-106); Potassium 4.1 mmol/L (3.5-5.1); Protein, Total 7.4 g/dL (6.4-8.2); Sodium Level 141 mmol/L (136-145); Troponin (Emerg Dept Use Only) < 0.02 ng/mL (0.0-0.045)
[2020-11-13 13:15] LABS: Barbiturates NEGATIVE (NEGATIVE); Benzodiazepines NEGATIVE (NEGATIVE); Cocaine NEGATIVE (NEGATIVE); METHAMPHETAM NEGATIVE (NEGATIVE); Methadone NEGATIVE (NEGATIVE); Opiates NEGATIVE (NEGATIVE); Phencyclidine NEGATIVE (NEGATIVE); THC Cannibis POSITIVE (NEGATIVE)
--- NOTE | 2020-11-13 14:39 | RAD REPORT ---
EXAM DESCRIPTION: CT - Head Brain Wo Cont - 11/13/2020 2:21 pm CLINICAL HISTORY: HEADACHE Headache, drowsiness, seizure COMPARISON: Head Brain Wo Cont dated 08/28/2020; Head Brain Wo Cont dated 02/14/2020 TECHNIQUE: All CT scans are performed using dose optimization technique as appropriate and may inclu de automated exposure control or mA/KV adjustment according to patient size. FINDINGS: No intracranial hemorrhage, hydrocephalus or extra-axial fluid collection.Mild generalized brain atrophy is present with mild periventricular and deep white matter chronic microvascular ische farida changes.No areas of brain edema or evidence of midline shift. The paranasal sinuses and mastoids are clear. The calvarium is intact. IMPRESSION: No acute intracranial abnormality.
--- NOTE | 2020-11-13 14:52 | ER ---
Nurse's Notes [facility] Name: Jax Flynn Age: 70 yrs Sex: Male : 1950 Arrival Date: 11/13/2020 Time: 11:01 Bed 19 Private MD: Diagnosis: Epilepsy and recurrent seizures Presentation: 11/13 11:05 Chief complaint: EMS states: "pt had an unwitnessed seizure. when we got there he was jd3 laying face down and was post ictal with not answering questions, but able to fallow simple commands.". Coronavirus screen: At this time, the client does not indicate any symptoms associated with coronavirus-19. Ebola Screen: Patient negative for fever greater than or equal to 101.5 degrees Fahrenheit, and additional compatible Ebola Virus Disease symptoms. Initial Sepsis Screen: Does the patient meet any 2 criteria? No. Patient's initial sepsis screen is negative. Does the patient have a suspected source of infection? No. Patient's initial sepsis screen is negative. Risk Assessment: Do you want to hurt yourself or someone else? Patient reports no desire to harm self or others. Onset of symptoms was November 13, 2020. 11:05 Method Of Arrival: EMS: [facility] jd3 11:05 Acuity: GORDON 2 jd3 Historical: - Allergies: 11:11 Codeine; jd3 - Home Meds: 11:11 Aspirin Oral [Active]; levetiracetam oral oral [Active]; losartan oral oral [Active]; jd3 melatonin Oral [Active]; Potassium Chloride Oral [Active]; - PSHx: 11:11 None; jd3 - Immunization history:: Adult Immunizations up to date. - Social history:: Smoking status: Patient reports the use of cigarette tobacco products, smokes one pack cigarettes per day. Patient uses street drugs, marijuana. Screenin:15 Abuse screen: Denies threats or abuse. Denies injuries from another. Nutritional ca1 screening: No deficits noted. Tuberculosis screening: No symptoms or risk factors identified. Fall Risk Fall in past 12 months (25 points). Secondary diagnosis (15 points) seizures, IV access (20 points). Total Mcgowan Fall Scale indicates High Risk Score (45 or more points). Fall prevention measures have been instituted. Side Rails Up X 2 Frequent Obs/Assessments Occuring As available patient and family educated on Fall Prevention Program and Strategies. Assessment: 11:15 General: Appears in no apparent distress. slender, unkempt, Behavior is calm, ca1 cooperative, appropriate for age. Pain: Complains of pain in top of head and forehead. Neuro: Level of Consciousness is awake, alert, obeys commands, Oriented to person. Cardiovascular: Heart tones S1 S2 present Capillary refill < 3 seconds Patient's skin is warm and dry. Rhythm is sinus rhythm. Respiratory: Airway is patent Respiratory effort is even, unlabored, Respiratory pattern is regular, symmetrical, Breath sounds are clear bilaterally. GI: Abdomen is flat, non-distended, Bowel sounds present X 4 quads. Abd is soft and non tender X 4 quads. : No signs and/or symptoms were reported regarding the genitourinary system. EENT: No signs and/or symptoms were reported regarding the EENT system. Derm: Skin is fragile, is thin, Skin is pink, warm \\T\\ dry. Musculoskeletal: Circulation, motion, and sensation intact. Capillary refill < 3 seconds. 12:38 Reassessment: Patient appears in no apparent distress at this time. Patient and/or ca1 family updated on plan of care and expected duration. Pain level reassessed. Patient is alert, oriented x 3, equal unlabored respirations, skin warm/dry/pink. Neuro: Level of Consciousness is awake, alert, obeys commands, Oriented to person, place. 13:30 Reassessment: Patient appears in no apparent distress at this time. Patient and/or ca1 family updated on plan of care and expected duration. Pain level reassessed. Patient is alert, oriented x 3, equal unlabored respirations, skin warm/dry/pink. 13:48 Reassessment: [phone]. aa5 14:37 Reassessment: Patient appears in no apparent distress at this time. Patient and/or ca1 family updated on plan of care and expected duration. Pain level reassessed. Patient is alert, oriented x 3, equal unlabored respirations, skin warm/dry/pink. 15:08 Reassessment: Called , awaiting ride home. ca1 15:34 Reassessment: Patient appears in no apparent distress at this time. Patient is alert, ca1 oriented x 3, equal unlabored respirations, skin warm/dry/pink. Vital Signs: 11:11 BP 172 / 101; Pulse 66; Resp 17 S; Temp 98.2(O); Pulse Ox 95% on R/A; Weight 90.72 kg jd3 (R); Height 6 ft. 0 in. (182.88 cm) (R); Pain 3/10; 11:54 BP 163 / 92; Pulse 61; Resp 16 S; Pulse Ox 100% on 2 lpm NC; ca1 12:38 BP 174 / 96; Pulse 84; Resp 16 S; Pulse Ox 97% on R/A; ca1 13:33 BP 139 / 80; Pulse 83; Resp 16 S; Pulse Ox 98% on R/A; ca1 14:37 BP 156 / 82; Pulse 57; Resp 16 S; Pulse Ox 97% on R/A; ca1 15:34 BP 149 / 82; Pulse 61; Resp 16 S; Pulse Ox 99% on R/A; ca1 11:11 Body Mass Index 27.12 (90.72 kg, 182.88 cm) jd3 [place] Coma Score: 11:17 Eye Response: spontaneous(4). Verbal Response: confused(4). Motor Response: obeys ca1 commands(6). Total: 14. ED Course: 11:01 Patient arrived in ED. am2 11:01 Felicita Pettit, RN is Primary Nurse. ca1 11:08 Triage completed. jd3 11:11 Arm band placed on. jd3 11:15 Patient has correct armband on for positive identification. Bed in low position. Call ca1 light in reach. Side rails up X2. Seizure precautions initiated. patient monitor on. Pulse ox on. NIBP on. Warm blanket given. 11:15 Door closed. Noise minimized. Lights dimmed. ca1 11:31 Initial lab(s) drawn, by me, held in ED. Missed attempt(s): 20 gauge in right forearm. sr5 Bleeding controlled, band aid applied, catheter tip intact. 11:32 Missed attempt(s): 20 gauge in right antecubital area. sr5 11:38 Jorje Peterson PA is PHCP. jr8 11:38 Anthony Perla MD is Attending Physician. jr8 11:52 Initial lab(s) drawn, by me, sent to lab. Inserted saline lock: 22 gauge in right ca1 antecubital area, using aseptic technique. Blood collected. 12:06 EKG done, by ED staff, reviewed by Anthony Perla MD. 5 12:38 Straight cath inserted, using sterile technique, 18 Fr. Specimen obtained. Returned ca1 clear yellow urine. Patient tolerated well. 14:20 CT Head Brain wo Cont In Process Unspecified. EDMS 14:50 Regulo Jenkins MD is Referral Physician. jr8 15:07 No provider procedures requiring assistance completed. ca1 15:35 IV discontinued, intact, bleeding controlled, No redness/swelling at site. Pressure ca1 dressing applied. Administered Medications: 12:27 Drug: Tylenol 1000 mg Route: PO; ca1 15:08 Follow up: Response: No adverse reaction; Pain is decreased ca1 Outcome: 14:51 Discharge ordered by . jr8 15:35 Discharged to home via wheelchair, with significant other. ca1 15:35 Condition: stable 15:35 Discharge instructions given to patient, significant other, Instructed on discharge instructions, follow up and referral plans. medication usage, Demonstrated understanding of instructions, follow-up care, medications, Prescriptions given X 1. 15:36 Patient left the ED. ca1 Signatures: Dispatcher [employer] EDLA Ciara Michel, RN RN [id number] Jorje Peterson PA PA jr8 Rhys Novoa RN RN 5 Kadi Miranda 5 Jing Breen Jonathon, RN RN jd3 Felicita Pettit, RAD RN ca1 Corrections: (The following items were deleted from the chart) 14:39 11:15 Patient has correct armband on for positive identification. Bed in low position. ca1 Call light in reach. Side rails up X2. Seizure precautions initiated. ca1 14:39 14:39 Door closed. Noise minimized. Lights dimmed. ca1 ca1
--- NOTE | 2020-11-13 14:52 | EDPHYS ---
Physician Documentation [facility] Name: Jax Flynn Age: 70 yrs Sex: Male : 1950 Arrival Date: 11/13/2020 Time: 11:01 Bed 19 Private MD: ED Physician Anthony Perla HPI: 11/13 14:45 This 70 yrs old Male presents to ER via EMS with complaints of Seizure. jr8 14:45 The patient presents after having a single isolated seizure. Seizure onset: today. jr8 Context: the seizure(s) was witnessed, by no one, the downtime is unknown. Seizure Hx: Original onset: longstanding, Seizure medications: Keppra. Associated injury: The patient did not suffer any apparent associated injury. Current symptoms: confusion. The patient has experienced similar episodes in the past, a few times. The patient has not recently seen a physician. Patient brought in by EMS after having unwitnessed seizure. Stated that he has seizure disorder and has been seen before because of this . Historical: - Allergies: 11:11 Codeine; jd3 - Home Meds: 11:11 Aspirin Oral [Active]; levetiracetam oral oral [Active]; losartan oral oral [Active]; jd3 melatonin Oral [Active]; Potassium Chloride Oral [Active]; - PSHx: 11:11 None; jd3 - Immunization history:: Adult Immunizations up to date. - Social history:: Smoking status: Patient reports the use of cigarette tobacco products, smokes one pack cigarettes per day. Patient uses street drugs, marijuana. ROS: 14:45 Eyes: Negative for injury, pain, redness, and discharge, ENT: Negative for injury, jr8 pain, and discharge, Neck: Negative for injury, pain, and swelling, Cardiovascular: Negative for chest pain, palpitations, and edema, Respiratory: Negative for shortness of breath, cough, wheezing, and pleuritic chest pain, Abdomen/GI: Negative for abdominal pain, nausea, vomiting, diarrhea, and constipation, Back: Negative for injury and pain, MS/Extremity: Negative for injury and deformity, Skin: Negative for injury, rash, and discoloration. 14:45 Neuro: Positive for headache, seizure activity. Exam: 14:45 Head/Face: Normocephalic, atraumatic. Eyes: Pupils equal round and reactive to light, jr8 extra-ocular motions intact. Lids and lashes normal. Conjunctiva and sclera are non-icteric and not injected. Cornea within normal limits. Periorbital areas with no swelling, redness, or edema. ENT: Nares patent. No nasal discharge, no septal abnormalities noted. Tympanic membranes are normal and external auditory canals are clear. Oropharynx with no redness, swelling, or masses, exudates, or evidence of obstruction, uvula midline. Mucous membranes moist. Neck: Trachea midline, no thyromegaly or masses palpated, and no cervical lymphadenopathy. Supple, full range of motion without nuchal rigidity, or vertebral point tenderness. No Meningismus. Cardiovascular: Regular rate and rhythm with a normal S1 and S2. No gallops, murmurs, or rubs. Normal PMI, no JVD. No pulse deficits. Respiratory: Lungs have equal breath sounds bilaterally, clear to auscultation and percussion. No rales, rhonchi or wheezes noted. No increased work of breathing, no retractions or nasal flaring. Abdomen/GI: Soft, non-tender, with normal bowel sounds. No distension or tympany. No guarding or rebound. No evidence of tenderness throughout. Back: No spinal tenderness. No costovertebral tenderness. Full range of motion. Skin: Warm, dry with normal turgor. Normal color with no rashes, no lesions, and no evidence of cellulitis. MS/ Extremity: Pulses equal, no cyanosis. Neurovascular intact. Full, normal range of motion. 14:45 Neuro: Orientation: to person, place, Mentation: able to follow commands, slow to respond, Memory: immediate memory is intact, remote memory is intact. recent memory is impaired, Cranial nerves: CN I not tested, CN II- XII are normal as tested, visual vasquez are intact. extraocular movements are intact, Speech is clear and appropriate. Tongue strength is normal, Cerebellar function: is grossly normal, Motor: moves all fours, strength is 5/5 in all extremities, Sensation: no obvious gross deficits, seizure activity, is not displayed by the patient, Abnormal movements: there are no abnormal movements. Vital Signs: 11:11 BP 172 / 101; Pulse 66; Resp 17 S; Temp 98.2(O); Pulse Ox 95% on R/A; Weight 90.72 kg jd3 (R); Height 6 ft. 0 in. (182.88 cm) (R); Pain 3/10; 11:54 BP 163 / 92; Pulse 61; Resp 16 S; Pulse Ox 100% on 2 lpm NC; ca1 12:38 BP 174 / 96; Pulse 84; Resp 16 S; Pulse Ox 97% on R/A; ca1 13:33 BP 139 / 80; Pulse 83; Resp 16 S; Pulse Ox 98% on R/A; ca1 14:37 BP 156 / 82; Pulse 57; Resp 16 S; Pulse Ox 97% on R/A; ca1 15:34 BP 149 / 82; Pulse 61; Resp 16 S; Pulse Ox 99% on R/A; ca1 11:11 Body Mass Index 27.12 (90.72 kg, 182.88 cm) jd3 [place] Coma Score: 11:17 Eye Response: spontaneous(4). Verbal Response: confused(4). Motor Response: obeys ca1 commands(6). Total: 14. MDM: 11:51 Patient medically screened. [facility] 14:45 Data reviewed: vital signs, nurses notes, lab test result(s), EKG, radiologic studies, [facility] CT scan. Data interpreted: Pulse oximetry: on room air is 97 %. Interpretation: normal. Counseling: I had a detailed discussion with the patient and/or guardian regarding: the historical points, exam findings, and any diagnostic results supporting the discharge/admit diagnosis, lab results, radiology results, the need for outpatient follow up, a neurologist, to return to the emergency department if symptoms worsen or persist or if there are any questions or concerns that arise at home. Response to treatment: the patient's symptoms have resolved after treatment. ED course: Patient feeling better. No acute findings on labs or imaging. THC positive. No seizures while in ED for past few hours. Will send home to f/u with neurology. Knows to come back if worse . 11/13 11:38 Order name: Acetaminophen; Complete Time: 12:49 jr8 11/13 11:38 Order name: Basic Metabolic Panel; Complete Time: 12:49 jr8 11/13 11:38 Order name: CBC with Diff; Complete Time: 12:15 8 11/13 11:38 Order name: ETOH Level; Complete Time: 12:36 jr8 11/13 11:38 Order name: Hepatic Function; Complete Time: 12:49 8 11/13 11:38 Order name: PT-INR; Complete Time: 12:26 [facility] 11/13 11:38 Order name: Ptt, Activated; Complete Time: 12:26 8 11/13 11:38 Order name: Salicylate; Complete Time: 12:50 8 11/13 11:38 Order name: Urine Drug Screen; Complete Time: 14:09 [facility] 11/13 11:38 Order name: EKG; Complete Time: 11:39 8 11/13 11:38 Order name: Troponin (emerg Dept Use Only); Complete Time: 12:49 [facility] 11/13 12:45 Order name: Urine Dipstick-Ancillary; Complete Time: 12:49 [facility] 11/13 14:08 Order name: CT Head Brain wo Cont; Complete Time: 14:45 [facility] 11/13 11:38 Order name: EKG - Nurse/Tech; Complete Time: 12:05 [facility] 11/13 11:38 Order name: IV Saline Lock; Complete Time: 11:52 [facility] 11/13 11:38 Order name: Labs collected and sent; Complete Time: 11:52 [facility] 11/13 11:38 Order name: Urine Dipstick-Ancillary (obtain specimen); Complete Time: 12:55 jr8 Administered Medications: 12:27 Drug: Tylenol 1000 mg Route: PO; ca1 15:08 Follow up: Response: No adverse reaction; Pain is decreased ca1 Disposition: 11/13/20 14:51 Discharged to Home. Impression: Epilepsy and recurrent seizures. - Condition is Stable. - Discharge Instructions: Seizure, Adult. - Prescriptions for Keppra 500 mg Oral Tablet - take 1 tablet by ORAL route every 12 hours; 20 tablet. - Medication Reconciliation Form, Thank You Letter, Antibiotic Education, Prescription Opioid Use form. - Follow up: Regulo Jenkins MD; When: 2 - 3 days; Reason: Recheck today's complaints, Continuance of care, Re-evaluation by your physician. - Problem is new. - Symptoms have improved. Addendum: 11/15/2020 07:17 Co-signature as Attending Physician, Anthony Perla MD I agree with the assessment and k plan of care. Signatures: Dispatcher [employer] [facility] Anthony Perla MD MD kdr Roszak, Josh, PA PA jr8 Dale Canales RN RN jd3 Felicita Pettit RN RN ca1 Corrections: (The following items were deleted from the chart) 11/13 13:00 11:38 Suicide Screening ([place]) ordered. jr8 ca1 15:36 14:51 11/13/2020 14:51 Discharged to Home. Impression: Epilepsy and recurrent seizures. ca1 Condition is Stable. Forms are Medication Reconciliation Form, Thank You Letter, Antibiotic Education, Prescription Opioid Use. Follow up: Regulo Jenkins; When: 2 - 3 days; Reason: Recheck today's complaints, Continuance of care, Re-evaluation by your physician. Problem is new. Symptoms have improved. jr8
[2020-11-14 02:30] VITALS: TEMP 98.2
[2020-11-14 02:37] VITALS: BP 149/82; O2SAT 99
--- NOTE | 2020-11-14 12:48 | EKG ---
Test Date: 2020-11-13 Test Time: 12:15:53 Touch Up Painter Hand: TONY MEASUREMENT RESULTS: Intervals: Rate: 63 NH: 148 QRSD: 80 QT: 414 QTc: 423 [place]: P: 62 NH: 148 QRS: 56 T: 64 INTERPRETIVE STATEMENTS: Normal sinus rhythm Normal ECG Compared to ECG 08/28/2020 14:01:54 Sinus bradycardia no longer present Right-axis deviation no longer present Electronically Signed On 11-14-20 12:45:43 CDT by Saad Peña
== END 2020-11-13 15:36 | disposition home or self-care (01) ==
LOC: ER 11:00
DX: G40.802 Other epilepsy, not intractable, without status epilepticus (principal); F17.210 Nicotine dependence, cigarettes, uncomplicated; Z88.5 Allergy status to narcotic agent
CPT/HCPCS: 36415; 51702; 70450; 80048; 80076; 80307; 80320; 80329; 81003; 84484; 85025; 85610; 85730; 93005; 99285

== ENCOUNTER 2021-01-05 06:57 | Emergency (ER) | payer OTHER ==
--- NOTE | 2021-01-05 07:38 | RAD REPORT ---
EXAM DESCRIPTION: CT - Head Brain Wo Cont - 01/05/2021 7:23 am CLINICAL HISTORY: Seizure COMPARISON: November 2021 TECHNIQUE: Computed axial tomography of the head was obtained. IV contrast was not requested. All CT scans are performed using dose optimization technique as appropriate and may include automated exposure control or mA/KV adjustment according to patient size. FINDINGS: An intracranial bleed is not seen . The ventricles are normal in caliber. No extra-axial fluid collection is noted. Mild to moderate low-density areas within periventricular, deep and subcortical white matter likely r epresent ischemic changes secondary to small vessel disease. Opacification left maxillary sinus consistent with sinusitis IMPRESSION: No acute intracranial abnormality is seen. If patient's symptoms persist MRI of the bra in would be recommended.
[2021-01-05] MEDS ORDERED: LEVETIRACETAM 500 MG/5 ML VIAL IV ONE (07:46)
[2021-01-05] MEDS ORDERED: NA CHLORIDE 0.9% 1,000 ML ONE (07:46)
[2021-01-05] MEDS ORDERED: NA CHLORIDE 0.9% 100 ML ONE (07:52)
[2021-01-05 08:13] LABS: Absolute Lymphocytes (CBC) 1.3 K/uL (0.7-4.9); Basophils % 0.8 % (0-1.3); Lymphocytes % 18.4 % (15.3-44.8); MPV 10.6 fL (7.6-11.3); RBC Red Blood Cell Count 5.35 M/uL (4.33-5.43)
[2021-01-05 08:21] LABS: Potassium 4.1 mmol/L (3.5-5.1)
--- NOTE | 2021-01-05 08:56 | ER ---
Nurse's Notes [facility] Name: Jax Flynn Age: 70 yrs Sex: Male : 1950 Arrival Date: 01/05/2021 Time: 06:58 Bed 5 Private MD: Diagnosis: Epilepsy and recurrent seizures Presentation: 01/05 06:58 Chief complaint: Patient states: unwitnessed seizure per at 0620, postictal on iw scene, now alert, has been ot of keppra X 5 days. Coronavirus screen: At this time, the client does not indicate any symptoms associated with coronavirus-19. Ebola Screen: Patient negative for fever greater than or equal to 101.5 degrees Fahrenheit, and additional compatible Ebola Virus Disease symptoms Patient denies exposure to infectious person. Patient denies travel to an Ebola-affected area in the 21 days before illness onset. No symptoms or risks identified at this time. Initial Sepsis Screen: Does the patient meet any 2 criteria? No. Patient's initial sepsis screen is negative. Does the patient have a suspected source of infection? No. Patient's initial sepsis screen is negative. Risk Assessment: Do you want to hurt yourself or someone else? Patient reports no desire to harm self or others. Onset of symptoms was January 05, 2021. Care prior to arrival: Glucose check: 101. 06:58 Method Of Arrival: EMS: [facility] 06:58 Acuity: [place] 3 iw Triage Assessment: 09:05 General: Appears in no apparent distress. comfortable, Behavior is calm, cooperative, ld1 appropriate for age. Historical: - Allergies: 07:01 Codeine; iw - PMHx: 07:01 Seizures; iw - PSHx: 07:01 None; iw - Immunization history:: Adult Immunizations up to date. - Social history:: Smoking status: Patient reports the use of cigarette tobacco products. - Family history:: not pertinent. - Hospitalizations: : No recent hospitalization is reported. Screenin:40 Abuse screen: Denies threats or abuse. Denies injuries from another. Nutritional ld1 screening: No deficits noted. Tuberculosis screening: No symptoms or risk factors identified. Fall Risk IV access (20 points). Total [place] Fall Scale indicates No Risk (0-24 pts). Assessment: 07:40 General: Appears in no apparent distress. comfortable, Behavior is calm, cooperative, ld1 appropriate for age. 07:40 Pain: Denies pain. Neuro: Level of Consciousness is awake, alert, obeys commands, ld1 Oriented to person, place, time, situation, Appropriate for age. Cardiovascular: Capillary refill < 3 seconds Patient's skin is warm and dry. Respiratory: Airway is patent Respiratory effort is even, unlabored, Respiratory pattern is regular, symmetrical. GI: Abdomen is flat, non-distended. : No signs and/or symptoms were reported regarding the genitourinary system. EENT: No signs and/or symptoms were reported regarding the EENT system. Derm: No signs and/or symptoms reported regarding the dermatologic system. Musculoskeletal: No signs and/or symptoms reported regarding the musculoskeletal system. 08:50 Reassessment: No changes from previously documented assessment. Patient and/or family ld1 updated on plan of care and expected duration. Pain level reassessed. Patient is alert, oriented x 3, equal unlabored respirations, skin warm/dry/pink. Laying in bed waiting on results with at bedside. Patient denies pain at this time. Vital Signs: 07:01 BP 146 / 98; Pulse 62; Resp 16; Pulse Ox 92% on R/A; iw 07:40 BP 144 / 90; Pulse 63; Resp 18; Temp 98.5(O); Pulse Ox 97% on 2 lpm NC; Weight 63.5 kg; ld1 Height 5 ft. 10 in. (177.80 cm); Pain 0/10; 08:50 BP 140 / 88; Pulse 65; Resp 18; Pulse Ox 98% on 2 lpm NC; ld1 07:40 Body Mass Index 20.09 (63.50 kg, 177.80 cm) ld1 [place] Coma Score: 09:05 Eye Response: spontaneous(4). Verbal Response: oriented(5). Motor Response: obeys ld1 commands(6). Total: 15. ED Course: 06:58 Patient arrived in ED. iw 07:00 Triage completed. iw 07:01 Arm band placed on. iw 07:01 Seizure precautions initiated. ld1 07:03 Francisco Babcock MD is Attending Physician. rn 07:18 Merly Baca RN is Primary Nurse. ld1 07:22 CT Head Brain wo Cont In Process Unspecified. EDMS 07:27 XRAY Chest (1 view) In Process Unspecified. EDMS 07:40 No provider procedures requiring assistance completed. Inserted saline lock: 20 gauge ld1 in right forearm, using aseptic technique. Blood collected. Missed attempt(s): 20 gauge in right antecubital area. 07:56 Patient has correct armband on for positive identification. Bed in low position. Call mh5 light in reach. Side rails up X 1. Adult w/ patient. Warm blanket given. Pillow given. secured entrance monitor on. Pulse ox on. NIBP on. 07:56 EKG done, by ED staff, reviewed by Francisco Babcock MD. [facility] 09:13 IV discontinued, intact, bleeding controlled, No redness/swelling at site. ld1 Administered Medications: 08:00 Drug: NS 0.9% 1000 ml Route: IV; Rate: 1000 ml; Site: right forearm; ld1 08:50 Follow up: Response: No adverse reaction; IV Status: Completed infusion ld1 08:00 Drug: Keppra (levETIRAcetam) 1000 mg Route: IV; Rate: calculated rate; Site: right ld1 forearm; 08:16 Follow up: Response: No adverse reaction; IV Status: Completed infusion ld1 Outcome: 08:55 Discharge ordered by . rn 09:12 Discharged to home ambulatory, with family. ld1 09:12 Condition: stable 09:12 Discharge instructions given to patient, family, Instructed on discharge instructions, follow up and referral plans. medication usage, Demonstrated understanding of instructions, follow-up care, medications. 09:13 Patient left the ED. ld1 Signatures: Dispatcher [employer] Paulette Argueta RN RN iw Nieto, Roman, MD MD rn Martinez, Maria [facility] Merly Baca RN RN [facility]
--- NOTE | 2021-01-05 08:56 | EDPHYS ---
Physician Documentation [facility] Name: Jax Flynn Age: 70 yrs Sex: Male : 1950 Arrival Date: 01/05/2021 Time: 06:58 Bed 5 Private MD: ED Physician Francisco Babcock HPI: 01/05 07:17 This 70 yrs old Male presents to ER via EMS with complaints of Seizure. rn 07:17 The patient presents after having a possible seizure episode. Seizure onset: the onset rn is not known. Associated injury: The patient did not suffer any apparent associated injury. Current symptoms: confusion. The patient has experienced similar episodes in the past. The patient has not recently seen a physician. Per EMS, unwitnessed seizure, report given by , noticed him to be confused, told EMS has not taken keppra in a few days atleast. No fever, no focal pain, no focal neuro complaints, was confused and seemed post-ictal per EMS, now near baseline, patient only reports generalized weakness and doesn't recall what happened. Denies recent illness or trauma. . Historical: - Allergies: 07:01 Codeine; iw - PMHx: 07:01 Seizures; iw - PSHx: 07:01 None; iw - Immunization history:: Adult Immunizations up to date. - Social history:: Smoking status: Patient reports the use of cigarette tobacco products. - Family history:: not pertinent. - Hospitalizations: : No recent hospitalization is reported. ROS: 07:17 Constitutional: Negative for fever, chills, and weight loss, Eyes: Negative for injury, rn pain, redness, and discharge, Neck: Negative for injury, pain, and swelling, Cardiovascular: Negative for chest pain, palpitations, and edema, Respiratory: Negative for shortness of breath, cough, wheezing, and pleuritic chest pain, Abdomen/GI: Negative for abdominal pain, nausea, vomiting, diarrhea, and constipation, Back: Negative for injury and pain, : Negative for injury, bleeding, discharge, and swelling, MS/Extremity: Negative for injury and deformity, Skin: Negative for injury, rash, and discoloration, Neuro: Negative for numbness, tingling Exam: 07:17 Constitutional: This is a well developed, well nourished patient who is awake, alert, rn and in no acute distress. Head/Face: Normocephalic, atraumatic. Eyes: Pupils equal round and reactive to light, extra-ocular motions intact. Lids and lashes normal. Conjunctiva and sclera are non-icteric and not injected. Cornea within normal limits. Periorbital areas with no swelling, redness, or edema. ENT: + rhinophyma Neck: Trachea midline, no masses palpated, and no cervical lymphadenopathy. Supple, full range of motion without nuchal rigidity, or vertebral point tenderness. No Meningismus. Cardiovascular: Regular rate and rhythm. No pulse deficits. Respiratory: Speaking full sentences. No increased work of breathing, no retractions or nasal flaring. Abdomen/GI: soft, non-tender Skin: Warm, dry MS/ Extremity: Pulses equal, no cyanosis. Neurovascular intact. Full, normal range of motion. Equal circumference. Neuro: Awake and alert, GCS 15, oriented to person, place, not time. Cranial nerves II-XII grossly intact. Motor strength 4/5 in all extremities. Sensory grossly intact. Cerebellar exam normal. Vital Signs: 07:01 BP 146 / 98; Pulse 62; Resp 16; Pulse Ox 92% on R/A; iw 07:40 BP 144 / 90; Pulse 63; Resp 18; Temp 98.5(O); Pulse Ox 97% on 2 lpm NC; Weight 63.5 kg; ld1 Height 5 ft. 10 in. (177.80 cm); Pain 0/10; 08:50 BP 140 / 88; Pulse 65; Resp 18; Pulse Ox 98% on 2 lpm NC; ld1 07:40 Body Mass Index 20.09 (63.50 kg, 177.80 cm) ld1 [place] Coma Score: 09:05 Eye Response: spontaneous(4). Verbal Response: oriented(5). Motor Response: obeys ld1 commands(6). Total: 15. MDM: 07:03 Patient medically screened. rn 08:54 Differential diagnosis: cardiac arrhythmia, seizure, syncope. Data reviewed: vital rn signs, nurses notes, lab test result(s), EKG, radiologic studies, CT scan, plain films, and as a result, I will discharge patient. Counseling: I had a detailed discussion with the patient and/or guardian regarding: the historical points, exam findings, and any diagnostic results supporting the discharge/admit diagnosis, lab results, radiology results, the need for outpatient follow up, to return to the emergency department if symptoms worsen or persist or if there are any questions or concerns that arise at home. Response to treatment: the patient's condition has returned to base line, the patient is now symptom free, and as a result, I will discharge patient. Special discussion: I discussed with the patient/guardian in detail that at this point there is no indication for admission to the hospital. It is understood, however, that if the symptoms persist or worsen the patient needs to return immediately for re-evaluation. ED course: Pt needs to start taking keppra/seizure medication more regularly, will dc home and needs neuro f/u. . 01/05 07:09 Order name: CBC with Diff; Complete Time: 08:34 rn 01/05 07:09 Order name: Basic Metabolic Panel; Complete Time: 08:34 rn 01/05 07:09 Order name: CT Head Brain wo Cont; Complete Time: 08:01 rn 01/05 07:09 Order name: XRAY Chest (1 view) rn 01/05 07:09 Order name: IV Start; Complete Time: 08:00 rn 01/05 07:09 Order name: EKG; Complete Time: 07:09 rn 01/05 07:09 Order name: EKG - Nurse/Tech; Complete Time: 08:11 rn Administered Medications: 08:00 Drug: NS 0.9% 1000 ml Route: IV; Rate: 1000 ml; Site: right forearm; ld1 08:50 Follow up: Response: No adverse reaction; IV Status: Completed infusion ld1 08:00 Drug: Keppra (levETIRAcetam) 1000 mg Route: IV; Rate: calculated rate; Site: right ld1 forearm; 08:16 Follow up: Response: No adverse reaction; IV Status: Completed infusion ld1 Disposition: 01/05/21 08:55 Discharged to Home. Impression: Epilepsy and recurrent seizures. - Condition is Stable. - Discharge Instructions: Seizure, Adult. - Prescriptions for Keppra 500 mg Oral Tablet - take 1 tablet by ORAL route every 12 hours; 30 tablet. - Medication Reconciliation Form, Thank You Letter, Antibiotic Education, Prescription Opioid Use form. - Follow up: Private Physician; When: As needed; Reason: Recheck today's complaints, Re-evaluation by your physician. - Problem is an acute exacerbation. - Symptoms have improved. Signatures: Dispatcher [employer] EDPaulette Moore RN RN iw Francisco Babcock MD MD rn Dibbern, Lauren, RN RN ld1 Corrections: (The following items were deleted from the chart) 08:57 08:55 01/05/2021 08:55 Discharged to Home. Impression: Epileptic seizures related to rn external causes. Condition is Stable. Forms are Medication Reconciliation Form, Thank You Letter, Antibiotic Education, Prescription Opioid Use. Follow up: Private Physician; When: As needed; Reason: Recheck today's complaints, Re-evaluation by your physician. Problem is an acute exacerbation. Symptoms have improved. rn 09:13 08:57 01/05/2021 08:55 Discharged to Home. Impression: Epilepsy and recurrent seizures. ld1 Condition is Stable. Discharge Instructions: Seizure, Adult. Forms are Medication Reconciliation Form, Thank You Letter, Antibiotic Education, Prescription Opioid Use. Follow up: Private Physician; When: As needed; Reason: Recheck today's complaints, Re-evaluation by your physician. Problem is an acute exacerbation. Symptoms have improved. rn
[2021-01-05 09:25] VITALS: TEMP 98.5
[2021-01-05 09:27] VITALS: BP 140/88; O2SAT 98
--- NOTE | 2021-01-05 10:11 | RAD REPORT ---
EXAM DESCRIPTION: [place] Single View01/05/2021 7:29 am CLINICAL HISTORY: Seizure COMPARISON: 2019 FINDINGS: Lungs are hyperaerated. The lungs appear clear of acute infiltrate. The heart is normal s ize IMPRESSION: No acute abnormalities displayed
--- NOTE | 2021-01-07 12:03 | EKG ---
Test Date: 2021-01-05 Test Time: 08:07:05 [employer] Application Architect: TONY MEASUREMENT RESULTS: Intervals: Rate: 64 TN: 152 QRSD: 80 QT: 428 QTc: 441 [place]: P: 73 TN: 152 QRS: 68 T: 76 INTERPRETIVE STATEMENTS: Normal sinus rhythm ST abnormality, possible digitalis effect Abnormal ECG Compared to ECG 11/13/2020 12:15:53 ST (T wave) deviation now present Electronically Signed On 01-07-21 11:54:48 CDT by Saad Peña
== END 2021-01-05 09:13 | disposition home or self-care (01) ==
LOC: ER 06:57
DX: G40.802 Other epilepsy, not intractable, without status epilepticus (principal); F17.210 Nicotine dependence, cigarettes, uncomplicated; Z88.5 Allergy status to narcotic agent
CPT/HCPCS: 96365; 96361; 93005; 85025; 80048; 36415; 70450; 71045; 99285; J1953; J7030

== ENCOUNTER 2023-04-29 17:09 | Observation (INO) | payer OTHER, SELFPAY ==
[2023-04-29] MEDS ORDERED: FAMOTIDINE 20 MG/2 ML VIAL IV ONE (17:47)
[2023-04-29] MEDS ORDERED: NA CHLORIDE 0.9% 1,000 ML ONE ×2 (17:47→18:36)
[2023-04-29 17:50] LABS: Protime INR 1.02
[2023-04-29 17:52] LABS: Hematocrit 38.1 % (39.6-49.0); Lymphocytes % 37.6 % (15.3-44.8); MCV 89.3 fL (80-100); MPV 9.7 fL (7.6-11.3); Platelets 141 thou/uL (152-406); RBC Red Blood Cell Count 4.26 M/uL (4.33-5.43)
[2023-04-29 17:58] LABS: Bilirubin Direct 0.1 mg/dL (0-0.2); Bilirubin Indirect, Calculated 0.3 mg/dL (0.2-0.8); Bilirubin Total 0.4 mg/dL (0.2-1.0); Magnesium 2.2 mg/dL (1.6-2.4); Potassium 3.6 mEq/L (3.5-5.1); Protein, Total 5.6 g/dL (6.4-8.2)
--- NOTE | 2023-04-29 18:04 | RAD REPORT ---
EXAM DESCRIPTION: [place] Single View04/29/2023 5:26 pm CLINICAL HISTORY: cough COMPARISON: 2020 FINDINGS: The lungs appear clear of acute infiltrate. The heart is normal size IMPRESSION: No acute abnormalities displayed
--- NOTE | 2023-04-29 18:09 | RAD REPORT ---
EXAM DESCRIPTION: CT - Head Brain Wo Cont - 04/29/2023 5:54 pm CLINICAL HISTORY: Syncope COMPARISON: 2020 TECHNIQUE: Computed axial tomography of the head was obtained. IV contrast was not requested. All CT scans are performed using dose optimization technique as appropriate and may include automated exposure control or mA/KV adjustment according to patient size. FINDINGS: An intracranial bleed is not seen The ventricles are normal in caliber No extra-axial fluid collection is noted. Mild to moderate low-density areas within periventricular, deep and subcortical white matter likely r epresent ischemic changes secondary to small vessel disease. Fluid within the sinuses/ mastoids is not seen. IMPRESSION: No acute intracranial abnormality is seen If patient's symptoms persist MRI of the brain would be recommended
[2023-04-29] MEDS ORDERED: CEFTRIAXONE 1000 MG/VIAL ONE (18:35)
--- NOTE | 2023-04-29 18:54 | EDPHYS ---
Physician Documentation [facility] Name: Jax Flynn Age: 72 yrs Sex: Male : 1950 Arrival Date: 04/29/2023 Time: 17:09 Bed 4 Private MD: ED Physician Renan Rubalcava HPI: 04/29 18:46 This 72 yrs old Male presents to ER via EMS with complaints of low blood pierce pressure, Syncope. 18:46 The patient has experienced syncope, became unresponsive, collapsed. Onset: The pierce symptoms/episode began/occurred just prior to arrival, today. Duration: This was a single episode, that lasted 3 minute(s). Context: the episode(s) was witnessed, by family, . Associated injury: The patient did not suffer any apparent associated injury. Associated signs and symptoms: The patient has no apparent associated signs or symptoms. Current symptoms: Currently, the patient is not experiencing any symptoms. The patient has not experienced similar symptoms in the past. Historical: - Allergies: 17:17 Codeine; mb9 - Home Meds: 17:17 Keppra Oral [Active]; mb9 - PMHx: 17:17 Seizures; memory disorder; mb9 - PSHx: 17:17 None; mb9 - Immunization history:: Adult Immunizations up to date. - Social history:: Smoking status: Patient reports the use of cigarette tobacco products, smokes one pack cigarettes per day. - Family history:: not pertinent. ROS: 18:46 Constitutional: Negative for fever, chills, and weight loss, Eyes: Negative for injury, pierce pain, redness, and discharge, ENT: Negative for injury, pain, and discharge, Neck: Negative for injury, pain, and swelling, Cardiovascular: Negative for chest pain, palpitations, and edema, Respiratory: Negative for shortness of breath, cough, wheezing, and pleuritic chest pain, Abdomen/GI: Negative for abdominal pain, nausea, vomiting, diarrhea, and constipation, Back: Negative for injury and pain, : Negative for injury, bleeding, discharge, and swelling, MS/Extremity: Negative for injury and deformity, Skin: Negative for injury, rash, and discoloration, Psych: Negative for depression, anxiety, suicide ideation, homicidal ideation, and hallucinations, Allergy/Immunology: Negative for hives, rash, and allergies, Endocrine: Negative for neck swelling, polydipsia, polyuria, polyphagia, and marked weight changes, Hematologic/Lymphatic: Negative for swollen nodes, abnormal bleeding, and unusual bruising, 18:46 Neuro: Positive for syncope, Exam: 18:46 Constitutional: This is a well developed, well nourished patient who is awake, alert, pierce and in no acute distress. Head/Face: Normocephalic, atraumatic. Eyes: Pupils equal round and reactive to light, extra-ocular motions intact. Lids and lashes normal. Conjunctiva and sclera are non-icteric and not injected. Cornea within normal limits. Periorbital areas with no swelling, redness, or edema. ENT: Nares patent. No nasal discharge, no septal abnormalities noted. Tympanic membranes are normal and external auditory canals are clear. Oropharynx with no redness, swelling, or masses, exudates, or evidence of obstruction, uvula midline. Mucous membranes moist. Neck: Trachea midline, no thyromegaly or masses palpated, and no cervical lymphadenopathy. Supple, full range of motion without nuchal rigidity, or vertebral point tenderness. No Meningismus. Chest/axilla: Normal chest wall appearance and motion. Nontender with no deformity. No lesions are appreciated. Cardiovascular: Regular rate and rhythm with a normal S1 and S2. No gallops, murmurs, or rubs. Normal PMI, no JVD. No pulse deficits. Respiratory: Lungs have equal breath sounds bilaterally, clear to auscultation and percussion. No rales, rhonchi or wheezes noted. No increased work of breathing, no retractions or nasal flaring. Abdomen/GI: Soft, non-tender, with normal bowel sounds. No distension or tympany. No guarding or rebound. No evidence of tenderness throughout. Back: No spinal tenderness. No costovertebral tenderness. Full range of motion. Male : Normal genitalia with no discharge or lesions. Skin: Warm, dry with normal turgor. Normal color with no rashes, no lesions, and no evidence of cellulitis. MS/ Extremity: Pulses equal, no cyanosis. Neurovascular intact. Full, normal range of motion. Neuro: Awake and alert, GCS 15, oriented to person, place, time, and situation. Cranial nerves II-XII grossly intact. Motor strength 5/5 in all extremities. Sensory grossly intact. Cerebellar exam normal. Normal gait. Psych: Awake, alert, with orientation to person, place and time. Behavior, mood, and affect are within normal limits. 18:46 ECG was reviewed by the Attending Physician. Vital Signs: 17:14 BP 106 / 74; Pulse 76; Resp 18; Temp 98.6; Pulse Ox 95% on R/A; Weight 74.84 kg; Height mb9 5 ft. 8 in. ; 17:42 BP 84 / 66; Pulse 61; Resp 18; Pulse Ox 94% on R/A; ld1 19:30 BP 133 / 75; Pulse 67; Resp 20; Pulse Ox 96% on R/A; jb4 17:14 Body Mass Index 25.09 (74.84 kg, 172.72 cm) mb9 MDM: 17:12 Patient medically screened. pierce 17:12 Patient medically screened. pierce 18:48 Differential Diagnosis: aortic aneurysm, cardiac arrhythmia, cerebrovascular accident, pierce drug effect, GI bleed, idiopathic syncope, seizure, vasovagal episode. Data reviewed: vital signs, nurses notes, lab test result(s), EKG, radiologic studies, plain films. Consideration of Admission/Observation Patient was admitted/placed on observation. Escalation of care including admission/observation considered. I considered the following discharge prescriptions or medication management in the emergency department Medications were administered in the Emergency Department. See MAR. Independent interpretation of the following test(s) in the Emergency Department EKG: See my EKG interpretation above. Test considered but Not performed: MRI: no mri brain. Care significantly affected by the following chronic conditions: Chronic Obstructive Pulmonary Disease, seizure do. 04/29 17:14 Order name: Basic Metabolic Panel; Complete Time: 18:18 [facility] 04/29 17:14 Order name: CBC with Diff; Complete Time: 18:18 [facility] 04/29 17:14 Order name: LFT's; Complete Time: 18:18 [facility] 04/29 17:14 Order name: Magnesium; Complete Time: 18:18 [facility] 04/29 17:14 Order name: NT PRO-BNP; Complete Time: 18:18 pierce 04/29 17:14 Order name: PT-INR; Complete Time: 18:18 [facility] 04/29 17:14 Order name: Troponin HS; Complete Time: 18:18 [facility] 04/29 17:14 Order name: Lipase; Complete Time: 18:18 [facility] 04/29 17:14 Order name: Urinalysis w/ reflexes; Complete Time: 19:39 [facility] 04/29 17:24 Order name: Lactate w/ 2H reflex if indic.; Complete Time: 18:18 04/29 17:24 Order name: Blood Culture Adult (2) 04/29 18:18 Order name: Flu; Complete Time: 19:39 [facility] 04/29 18:18 Order name: COVID-19 SARS RT PCR; Complete Time: 19:39 [facility] 04/29 17:14 Order name: XRAY Chest (1 view); Complete Time: 18:18 [facility] 04/29 17:14 Order name: CT Head Brain wo Cont; Complete Time: 18:18 [facility] 04/29 17:14 Order name: EKG; Complete Time: 17:15 [facility] 04/29 17:14 Order name: Cardiac monitoring; Complete Time: 17:31 [facility] 04/29 17:14 Order name: EKG - Nurse/Tech; Complete Time: 17:28 [facility] 04/29 17:14 Order name: IV Saline Lock; Complete Time: 17:31 [facility] 04/29 17:14 Order name: Labs collected and sent; Complete Time: 17:31 [facility] 04/29 17:14 Order name: O2 Per Protocol; Complete Time: 17:31 [facility] 04/29 17:14 Order name: O2 Sat Monitoring; Complete Time: 17:31 [facility] EC:46 Rate is 62 beats/min. Rhythm is regular. QRS [place] is Normal. MS interval is normal. QRS pierce interval is normal. QT interval is normal. No Q waves. T waves are Normal. No ST changes noted. Clinical impression: NSR w/ Non-specific ST/T Changes and No evidence of ischemia. Interpreted by me. Reviewed by me. Administered Medications: 17:38 Drug: NS 0.9% IV 1000 ml IV at 1 bolus Per protocol; 1000 mL bolus Route: IV; Rate: 1 ld1 bolus; Site: left forearm; 17:38 Drug: Famotidine IVP 20 mg IVP once; dilute with 10 mL 0.9% NaCl; give over 2 minutes ld1 Route: IVP; Site: left forearm; 18:32 Drug: Rocephin IV 1 grams IV at per protocol once; Given slow IV push per pharmacy ld1 instructions Route: IV; Rate: per protocol; Site: left forearm; 18:32 Drug: NS 0.9% IV 1000 ml IV at 1 bolus Per protocol; 1000 mL bolus Route: IV; Rate: 1 ld1 bolus; Site: left forearm; 18:35 Drug: NS 0.9% IV 1000 ml IV at 125 ml/hr continuous Route: IV; Rate: 125 ml/hr; Site: ld1 right antecubital; Disposition Summary: 04/29/23 18:53 Hospitalization Ordered Notes: Hospitalization Status: Inpatient Admission pierce Location: Telemetry/MedSurg (Inpatient) pierce Condition: Fair pierce Problem: new pierce Symptoms: have improved pierce Bed/Room Type: Standard pierce Provider: Ashley Shirley(04/29/23 19:34) gabriel Room Assignment: [facility](04/29/23 19:34) Diagnosis - Hypotension, unspecified pierce - Tobacco abuse counseling pierce - Tobacco use pierce - Alcohol use, unspecified pierce - Syncope Near pierce Forms: - Medication Reconciliation Form pierce - SBAR form pierce - Leadership Thank You Letter pierce Signatures: Dispatcher [employer] EDAngelique Marcano RN RN Renan Quijano MD MD cha Sims, Lauren, RN RN ld1 Ellie Porter RN RN mb9 Corrections: (The following items were deleted from the chart) 19:34 18:53 Ashley Shirley cha 19:34 18:53 pierce
--- NOTE | 2023-04-29 18:54 | ER ---
Nurse's Notes [facility] Name: Jax Flynn Age: 72 yrs Sex: Male : 1950 Arrival Date: 04/29/2023 Time: 17:09 Bed 4 Private MD: Diagnosis: Hypotension, unspecified;Tobacco abuse counseling;Tobacco use;Alcohol use, unspecified;Syncope Near Presentation: 04/29 17:14 Chief complaint: EMS states: "toned out for syncope while walking outside to car. mb9 Family with pt states he was unconscious for 3 minutes. Denies hitting head or pain. Pt says he smoked THC and drank a beer. Family states pt is acting like normal self". Coronavirus screen: Vaccine status: Patient reports receiving the 2nd dose of the covid vaccine. Ebola Screen: No symptoms or risks identified at this time. Initial Sepsis Screen: Does the patient meet any 2 criteria? No. Patient's initial sepsis screen is negative. Does the patient have a suspected source of infection? No. Patient's initial sepsis screen is negative. Risk Assessment: Do you want to hurt yourself or someone else? Patient reports no desire to harm self or others. Onset of symptoms was April 29, 2023. 17:14 Method Of Arrival: EMS: [facility] mb9 17:14 Acuity: GORDON 3 mb9 17:18 Care prior to arrival: Medication(s) given: Normal saline infusion, 1000 mL, IV mb9 initiated. 18 GA, in the right forearm, Glucose check: 72. Triage Assessment: 17:17 General: Appears in no apparent distress. Behavior is calm, cooperative. Pain: Denies mb9 pain. EENT: No signs and/or symptoms were reported regarding the EENT system. Neuro: Schrader Agitation-Sedation Scale (RASS): 0 - Alert and Calm Level of Consciousness is awake, alert, obeys commands, Oriented to person, place, situation. Cardiovascular: Patient's skin is warm and dry. Respiratory: Airway is patent Respiratory effort is even, unlabored, Respiratory pattern is regular, symmetrical. GI: Abdomen is flat, non-distended. : No signs and/or symptoms were reported regarding the genitourinary system. Derm: Skin is pink, warm \\T\\ dry. Musculoskeletal: Range of motion: intact in all extremities. Historical: - Allergies: 17:17 Codeine; mb9 - Home Meds: 17:17 Keppra Oral [Active]; mb9 - PMHx: 17:17 Seizures; memory disorder; mb9 - PSHx: 17:17 None; mb9 - Immunization history:: Adult Immunizations up to date. - Social history:: Smoking status: Patient reports the use of cigarette tobacco products, smokes one pack cigarettes per day. - Family history:: not pertinent. Screenin:42 [facility] ED Fall Risk Assessment (Adult) History of falling in the last 3 months, ld1 including since admission No falls in past 3 months (0 pts). Abuse screen: Denies threats or abuse. Denies injuries from another. Nutritional screening: No deficits noted. Tuberculosis screening: No symptoms or risk factors identified. Assessment: 17:42 General: Appears in no apparent distress. comfortable, Behavior is calm, cooperative, ld1 appropriate for age. Pain: Denies pain. Neuro: Level of Consciousness is awake, alert, obeys commands, Oriented to person, place, time, situation. Cardiovascular: Capillary refill < 3 seconds Patient's skin is warm and dry. Rhythm is sinus bradycardia. Respiratory: Airway is patent Respiratory effort is even, unlabored. GI: Abdomen is flat, non-distended. : No signs and/or symptoms were reported regarding the genitourinary system. EENT: No signs and/or symptoms were reported regarding the EENT system. Derm: No signs and/or symptoms reported regarding the dermatologic system. Musculoskeletal: No signs and/or symptoms reported regarding the musculoskeletal system. Vital Signs: 17:14 BP 106 / 74; Pulse 76; Resp 18; Temp 98.6; Pulse Ox 95% on R/A; Weight 74.84 kg; Height mb9 5 ft. 8 in. ; 17:42 BP 84 / 66; Pulse 61; Resp 18; Pulse Ox 94% on R/A; ld1 19:30 BP 133 / 75; Pulse 67; Resp 20; Pulse Ox 96% on R/A; jb4 17:14 Body Mass Index 25.09 (74.84 kg, 172.72 cm) 9 ED Course: 17:12 Patient arrived in ED. [facility] 17:12 Renan Rubalcava MD is Attending Physician. [facility] 17:14 Arm band placed on. [facility] 17:16 Triage completed. mb9 17:19 Bed in low position. Call light in reach. Side rails up X 1. Client placed on mb9 continuous cardiac and pulse oximetry monitoring. NIBP monitoring applied. cardiac monitor on. 17:28 XRAY Chest (1 view) In Process Unspecified. EDMS 17:30 Merly Talavera, RN is Primary Nurse. ld1 17:31 Blood Culture Adult (2) Sent. ld1 17:31 Lactate w/ 2H reflex if indic. Sent. ld1 17:31 Inserted saline lock: 18 gauge in left forearm, using aseptic technique. Blood ld1 collected. Maintain EMS IV. Dressing intact. Good blood return noted. Site clean \\T\\ dry. Gauge \\T\\ site: 18G RAC. 17:38 Blood Culture Adult (2) Sent. ld1 17:38 Lactate w/ 2H reflex if indic. Sent. ld1 17:42 Door closed. Noise minimized. Warm blanket given. ld1 17:42 No provider procedures requiring assistance completed. ld1 17:56 CT Head Brain wo Cont In Process Unspecified. EDMS 17:59 Notified ED physician of a critical lab result(s). lactate 2.5. mb9 18:33 COVID-19 SARS RT PCR Sent. ld1 18:33 Flu Sent. ld1 19:27 Urinalysis w/ reflexes Sent. kd3 19:34 Ashley Shirley MD is Hospitalizing Provider. mw Administered Medications: 17:38 Drug: NS 0.9% IV 1000 ml IV at 1 bolus Per protocol; 1000 mL bolus Route: IV; Rate: 1 ld1 bolus; Site: left forearm; 17:38 Drug: Famotidine IVP 20 mg IVP once; dilute with 10 mL 0.9% NaCl; give over 2 minutes ld1 Route: IVP; Site: left forearm; 18:32 Drug: Rocephin IV 1 grams IV at per protocol once; Given slow IV push per pharmacy ld1 instructions Route: IV; Rate: per protocol; Site: left forearm; 18:32 Drug: NS 0.9% IV 1000 ml IV at 1 bolus Per protocol; 1000 mL bolus Route: IV; Rate: 1 ld1 bolus; Site: left forearm; 18:35 Drug: NS 0.9% IV 1000 ml IV at 125 ml/hr continuous Route: IV; Rate: 125 ml/hr; Site: ld1 right antecubital; Medication: 17:42 VIS not applicable for this client. ld1 Outcome: 18:53 Decision to Hospitalize by Provider. pierce 20:24 Patient left the ED. adam Signatures: Dispatcher [employer] EDCandice King RN Angelique Yeager RN RN Renan Quijano MD MD cha Bryson, James, RN RN jb4 Merly Talavera RN RN ld1 Jessy Lopez RN RN kd3 Ellie Porter RN RN mb9 Corrections: (The following items were deleted from the chart) 17:17 17:14 Chief complaint: EMS states: "toned out for syncope while walking outside to car. mb9 Family with pt states he was unconscious for 3 minutes. Denies hitting head or pain. Family states pt is acting like normal self" mb9
--- NOTE | 2023-04-29 19:12 | P.HP ---
Certification for Inpatient Patient admitted to: Observation With expected LOS: <2 Midnights Patient will require the following post-hospital care: None Practitioner: I am a practitioner with admitting privileges, knowledge of patient current condition, hospital course, and medical plan of care. Services: Services provided to patient in accordance with Admission requirements found in Title 42 Section 412.3 of the Code of Federal Regulations Patient History Date of Service: 04/30/23 Reason for admission: Syncope History of Present Illness: 72-year-old male with past medical history of seizure disorder, memory disorder presents with hypertension and a syncopal episode that began just prior to arrival. Lasted 3 minutes, witnessed by . Patient denies any pain on range of motion denies hitting his head. Denies chest pain, shortness of breath. Denies recent fever or infection. No reported cough. Plan to admit for hypotension, tobacco use, alcohol use, syncopal episode. ER evaluation EKG 6 Rate is 62 beats/min. Rhythm is regular. QRS [place] is Normal. AL interval is normal. QRS interval is normal. QT interval is normal. No Q waves. T waves are Normal. No ST changes noted. Clinical impression: NSR w/ Non-specific ST/T Changes and No evidence of ischemia. Blood pressure BP 84 / 66; Pulse 61; Resp 18; Pulse Ox 94% lactic 2.5, acute kidney injury creatinine 17 BUN 1.31, hypocalcemia 7.1, CBC anemia 12.8 38.1 UA pending SARS negative head CT no acute abnormality, chest x-ray no acute abnormality Allergies No Known Allergies Allergy (Unverified 09/16/18 14:30) Home Medications: Albuterol Inhaler [Ventolin Inhaler*] 2 puff IH Q6H PRN #1 [email or web address] 09/17/18 Fluticasone/Salmeterol [Advair Hfa 230-21 Mcg Inhaler] 12 gm IH BID #1 [email or web address] 09/17/18 - Past Medical/Surgical History Diabetic: No -: HTN -: Tobacco use -: Occasional alcohol use -: right knee surgery - Social History Smoking Status: Current some day smoker Alcohol use: Yes CD- Drugs: Yes Caffeine use: Yes Place of Residence: Home Review of Systems 10-point ROS is otherwise unremarkable Physical Examination - Physical Exam General: Alert, In no apparent distress, Oriented x3 HEENT: Atraumatic, Normocephalic, PERRLA Neck: Supple, 2+ carotid pulse no bruit, JVD not distended Respiratory: Normal air movement, Inspiratory wheezes Cardiovascular: No edema, Normal pulses, Regular rate/rhythm Capillary refill: <2 Seconds Gastrointestinal: Normal bowel sounds, Soft and benign Musculoskeletal: No clubbing, No swelling Integumentary: No rashes, No breakdown Neurological: Normal speech, Normal strength at 5/5 x4 extr - Studies Laboratory Data (last 24 hrs) 04/29/23 04/29/23 04/29/23 17:21 17:21 17:21 WBC 8.00 Hgb 12.8 L Hct 38.1 L Plt Count 141 L PT 11.2 INR 1.02 Sodium 139 Potassium 3.6 BUN 17 Creatinine 1.31 H Glucose 97 Magnesium 2.2 Total Bilirubin 0.4 AST 15 ALT 17 Alkaline Phosphatase 37 L Lipase 61 Microbiology Data (last 24 hrs): 04/29/23 18:30 Nasopharnyx Influenza Type A Antigen Screen - Final 04/29/23 18:30 Nasopharnyx Influenza Type B Antigen Screen - Final Assessment and Plan - Plan Assessment plan Syncope Hypotension Elevated lactic unknown source Acute kidney injury Tobacco use Hypocalcemia Elevated lactic Occasional alcohol use Seizure disorder Assessment plan Syncope Hypotension Telemetry, cardiology consult, trend troponins, orthostatic vital signs, lipid panel in the a.m. ER evaluation EKG 6 Rate is 62 beats/min. Rhythm is regular. QRS [place] is Normal. AL interval is normal. QRS interval is normal. QT interval is normal. No Q waves. T waves are Normal. No ST changes noted. Clinical impression: NSR w/ Non- specific ST/T Changes and No evidence of ischemia. Blood pressure BP 84 / 66; Pulse 61; Resp 18; Pulse Ox 94% UA pending SARS negative head CT no acute abnormality, chest x-ray no acute abnormality Acute kidney injury acute kidney injury creatinine 17 BUN 1.31, Gentle IV fluids Elevated lactic lactic 2.5, trend lactic CBC anemia 12.8 38.1 Ceftriaxone Hypocalcemia Trend electrolytes replace as needed hypocalcemia 7.1, Tobacco use Occasional alcohol use Educated on smoking cessation Seizure disorder Resume home meds Diet cardiac, n.p.o. after midnight Full code DVT Plan to discharge in: 24 Hours - Advance Directives Does patient have a Living Will: No Does patient have a Durable POA for Healthcare: No - Code Status/Comfort Care Code Status Assessed: Yes Code Status: Full Code Physician Review: Patient Assessed, Agree with Above Assessment and Plan Critical Care: No Time Spent Managing Pts Care (In Minutes): 50
[2023-04-29 19:38] LABS: Specific Gravity 1.009 (1.005-1.030); Urine Bilirubin NEGATIVE (Negative); Urine Blood Negative (Negative); Urine Clarity Clear (Clear); Urine Color Colorless (Yellow); Urine Glucose NEGATIVE (Negative); Urine Protein NEGATIVE (Negative); Urine Urobilinogen Normal (Normal)
[2023-04-29] MEDS ORDERED: FLUMAZENIL 0.1 MG/ML (5 mL VIAL) IV PRN (20:51)
[2023-04-29] MEDS ORDERED: ONDANSETRON 4 MG/2 ML VIAL IV PRN (20:51)
[2023-04-29] MEDS ORDERED: ACETAMINOPHEN 500 MG TAB PO PRN (20:51)
[2023-04-29] MEDS ORDERED: LORazepam 2 MG/ML VIAL IV PRN (20:51)
[2023-04-29] MEDS: NA CHLORIDE 0.9% 1,000 ML IV SCH (21:26)
[2023-04-29 23:49] VITALS: BMI 25.0
[2023-04-30 04:39] VITALS: O2SAT 99
[2023-04-30 06:33] LABS: Absolute Lymphocytes (CBC) 1.5 K/uL (0.7-4.9); Hematocrit 40.7 % (39.6-49.0); Lymphocytes % 20.3 % (15.3-44.8); MCV 89.7 fL (80-100); Platelets 109 thou/uL (152-406); RBC Red Blood Cell Count 4.54 M/uL (4.33-5.43)
[2023-04-30 06:47] LABS: Magnesium 2.1 mg/dL (1.6-2.4); Potassium 4.8 mEq/L (3.5-5.1); Troponin High Sensitivity 9.5 pg/mL (<58.9)
[2023-04-30] MEDS ORDERED: MULTIVITAMIN TAB PO SCH (09:00)
[2023-04-30] MEDS ORDERED: CEFTRIAXONE 1,000 MG in NA CHLORIDE 0.9% 50 ML IVPB SCH (09:00)
[2023-04-30] MEDS ORDERED: THIAMINE HCL 100 MG TABLET PO SCH (09:00)
[2023-04-30] MEDS ORDERED: ENOXAPARIN 40 MG/0.4 ML SQ SCH (09:00)
[2023-04-30] MEDS ORDERED: FOLIC ACID 1 MG TABLET PO SCH (09:00)
[2023-04-30] MEDS: NA CHLORIDE 0.9% 1,000 ML IV SCH (11:46)
[2023-04-30 16:31] VITALS: BP 122/73; TEMP 97.5
--- NOTE | 2023-05-02 12:11 | CON ---
Date of Consultation: 04/30/2023 Reason For Consultation: Syncope. History Of Present Illness: A 72-year-old male with past medical history of hypertension, active smo ker, history of seizure disorder. He was sitting out in the heat for a long brief hours and became l ightheaded and then passed out from the standing position and feels better now. Has no palpitations. No chest pain. No shortness of breath. Past Medical History: As outlined above in the HPI. Medications: Refer to reconciliation sheet for detailed list. Allergies: NO KNOWN DRUG ALLERGIES. Family History: No premature coronary artery disease or cancer. Social History: He drinks alcohol on a regular basis and he smokes. He does not use any drugs. Review of Systems: All systems reviewed and they were negative except what mentioned in HPI. Physical Examination: Vital Signs: Reviewed. Head and Neck: Pupils are equal, reactive to light. Intact eye movements. No JVD. No cervical lym phadenopathy. Neck is supple. Thyroid is not enlarged. Lungs: Clear to auscultation bilaterally. No rhonchi, wheezing, or crackles. No accessory muscle u se. Heart: Regular rate and rhythm. No extra sounds. Abdomen: Soft, nontender. Bowel sounds positive. No organomegaly. No masses or hernia. No rigidi ty or rebound. Extremities: No edema, clubbing, or cyanosis. Intact pulses. Skin: No rash. Neurologic: Alert, awake, oriented x3. No acute focal deficits appreciated. Investigations: BUN 17, creatinine 1.1. Cardiac enzymes are negative and hemoglobin is 13.8. Assessment And Recommendations: 1.Syncope, likely due to dehydration. Blood pressure was low on arrival at 84. After proper hydrat ion, the patient is feeling better. There is no arrhythmia. He can be released to follow up with me next week as an outpatient. We will obtain a stress test and echo to complete the workup. 2.Hypertension. Blood pressure is on the low side. Hold blood pressure medications. Encourage to keep well hydrated. 3.Smoker. He was counseled to quit. SR/MODL Voice ID: [id number] Report ID: [id number]
--- NOTE | 2023-05-02 12:37 | EKG ---
Test Date: 2023-04-29 Test Time: 17:27:37 Pencil Inspector: MARIO MEASUREMENT RESULTS: Intervals: Rate: 62 RI: 140 QRSD: 86 QT: 444 QTc: 450 [place]: P: 33 RI: 140 QRS: 87 T: 83 INTERPRETIVE STATEMENTS: Sinus rhythm with premature atrial complexes Otherwise normal ECG Compared to ECG 01/05/2021 08:07:05 Atrial premature complex(es) now present ST (T wave) deviation no longer present Electronically Signed On 05-02-23 12:32:14 CDT by Joss Nathan
== END 2023-04-30 17:38 | disposition home or self-care (01) ==
LOC: ER 17:09 → 2ND 19:18
PROVIDERS: ADMIT Hospitalist; ATTEND Hospitalist
DX: R55 Syncope and collapse (principal); I95.9 Hypotension, unspecified; N17.9 Acute kidney failure, unspecified; R56.9 Unspecified convulsions; R41.3 Other amnesia; I10 Essential (primary) hypertension; F10.90 Alcohol use, unspecified, uncomplicated; F17.210 Nicotine dependence, cigarettes, uncomplicated; E83.51 Hypocalcemia; D64.9 Anemia, unspecified; R74.02 Elevation of levels of lactic acid dehydrogenase [LDH]; Z71.6 Tobacco abuse counseling; Z88.6 Allergy status to analgesic agent; Z20.822 Contact with and (suspected) exposure to COVID-19
CPT/HCPCS: 87040 ×2; 85025 ×2; 80048 ×2; 36415; 83735 ×2; 85610; 80061; 80076; 83605 ×2; 81003; 84484 ×4; 83690; 83880; 87635; 87804 ×2; 70450; 71045; 96375; 96374; 99285; J1650; J7030 ×4; J0696 ×2; 93005; G0378

== ENCOUNTER → 2023-07-27 | Emergency (ER) | payer OTHER ==
[~2023-07-27] MED LIST: levETIRAcetam 500 MG TAB ONE
--- NOTE | 2023-07-27 19:57 | RAD REPORT ---
EXAM DESCRIPTION: Purnima Single View07/27/2023 7:34 pm CLINICAL HISTORY: Chest pain COMPARISON: April 2023 FINDINGS: The lungs appear clear of acute infiltrate. The heart is normal size IMPRESSION: No acute abnormalities displayed
[2023-07-27 20:12] LABS: Absolute Lymphocytes (CBC) 1.3 K/uL (0.7-4.9); Hematocrit 45.1 % (39.6-49.0); Lymphocytes % 13.2 % (15.3-44.8); MCV 90.1 fL (80-100); MPV 9.9 fL (7.6-11.3); Platelets 155 thou/uL (152-406)
[2023-07-27 20:22] LABS: ALT/SGPT 22 U/L (16-61); Albumin 3.4 g/dL (3.4-5.0); Alkaline Phosphatase 55 U/L (45-117); BUN Blood Urea Nitrogen 36 mg/dL (7-18); Bicarbonate 29 mEq/L (21-32); Bilirubin Total 0.3 mg/dL (0.2-1.0); Glomerular Filtration Rate 46 ml/min (=/>90); Glucose Level 119 mg/dL (74-106); Protein, Total 7.1 g/dL (6.4-8.2); Sodium Level 140 mEq/L (136-145); Troponin High Sensitivity 7.3 pg/mL (<58.9)
[2023-07-27 20:24] LABS: AST/SGOT 22 U/L (15-37); Bilirubin Direct < 0.1 mg/dL (0-0.2); Bilirubin Indirect, Calculated ND mg/dL (0.2-0.8); Magnesium 2.2 mg/dL (1.6-2.4); Potassium 4.9 mEq/L (3.5-5.1)
--- NOTE | 2023-07-27 20:39 | EDPHYS ---
Physician Documentation [facility] Name: Jax Flynn Age: 73 yrs Sex: Male : 1950 Arrival Date: 07/27/2023 Time: 18:40 Bed 17 Private MD: ED Physician Wilton Morejon HPI: 07/27 20:15 This 73 yrs old Male presents to ER via EMS with complaints of Altered Mental Status. ms3 20:15 73-year-old male presents via [place] [employer] for weakness that began after ms3 smoking his marijuana pipe. Patient denies loss of conscious or seizure activity. EMS notes patient's blood pressure on arrival was 90/68, heart rate 65, blood glucose and oxygen saturation were normal. EMS noted they gave patient 1 L normal saline with improvement of patient's blood pressure to 98/62. Patient denies pain, chest pain, shortness of breath, nausea, vomiting. Historical: - Allergies: 18:57 No Known Allergies; me1 - Home Meds: 18:57 Keppra Oral [Active]; losartan-hydrochlorothiazide oral [Active]; me1 - PMHx: 18:57 Seizures; memory disorder; Hypertensive disorder; me1 - Immunization history:: Adult Immunizations up to date. - Social history:: Smoking status: Patient reports the use of cigarette tobacco products, smokes one pack cigarettes per day. Patient uses street drugs, marijuana. ROS: 20:15 Constitutional: Negative for fever, and chills. Neck: Negative for injury, pain, and ms3 swelling, Cardiovascular: Negative for chest pain, and palpitations. Respiratory: Negative for shortness of breath, cough, wheezing, and pleuritic chest pain, Abdomen/GI: Negative for abdominal pain, nausea, vomiting, diarrhea, and constipation, MS/Extremity: Negative for injury and deformity, Skin: Negative for injury, rash, and discoloration, 20:15 All other systems are negative, Exam: 20:15 Constitutional: This is a well developed, well nourished patient who is awake, alert, ms3 and in no acute distress. Chest/axilla: Normal chest wall appearance and motion. Nontender with no deformity. Cardiovascular: Regular rate and rhythm with a normal S1 and S2. No gallops, murmurs, or rubs. Normal PMI, no JVD. No pulse deficits. Respiratory: Lungs have equal breath sounds bilaterally, clear to auscultation and percussion. No rales, rhonchi or wheezes noted. No increased work of breathing, no retractions or nasal flaring. Abdomen/GI: Soft, non-tender, with normal bowel sounds. No distension or tympany. No guarding or rebound. No evidence of tenderness throughout. Skin: Warm, dry with normal turgor. Normal color with no rashes, no lesions, and no evidence of cellulitis. 21:47 ECG was reviewed by the Attending Physician. EKG at 211, there is normal sinus rhythm, sp4 rate 63, overall normal EKG Vital Signs: 18:50 BP 96 / 75; Pulse 64; Resp 16; Temp 98.5(O); Pulse Ox 95% on R/A; Weight 74.84 kg; me1 Height 5 ft. 10 in. ; Pain 0/10; 19:00 BP 115 / 64; Pulse 59; Resp 14; Pulse Ox 99% on R/A; me1 19:00 BP 145 / 88; Pulse 61; Resp 14; Pulse Ox 100% on R/A; me1 19:47 BP 134 / 85; Pulse 64; Resp 18; Pulse Ox 100% on R/A; me1 20:00 BP 145 / 88; Pulse 61; Resp 14; Pulse Ox 100% on R/A; me1 21:00 BP 141 / 91; Pulse 70; Resp 14; Pulse Ox 99% on R/A; me1 21:30 BP 141 / 91; Pulse 67; Resp 15; Pulse Ox 97% on R/A; me1 18:50 Body Mass Index 23.67 (74.84 kg, 177.8 cm) me1 18:50 Pain Scale: Adult me1 [place] Coma Score: 21:47 Eye Response: spontaneous(4). Motor Response: obeys commands(6). Verbal Response: sp4 oriented(5). Total: 15. MDM: 19:06 Patient medically screened. ms3 20:15 Differential Diagnosis: electrolyte abnormality, seizure, volume depletion, THC abuse. ms3 20:15 Transition of care: After a detail discussion of the patient's case, care is ms3 transferred to Wilton Morejon MD. 20:37 Data reviewed: vital signs, nurses notes, EMS record, old medical records, lab test sp4 result(s), radiologic studies, CT scan. Consideration of Admission/Observation Escalation of care including admission/observation considered. ED course: Patient was evaluated he is able to stand up with assistance and ambulate. Patient labs revealed slightly elevated creatinine 1.59. Patient reports smoking marijuana cigarette prior to becoming confused today. On exam patient knows cco & president but not aware of the date. Overall patient is stable he has normal chest x-ray and stable vital signs. Normal CBC. Believe patient is stable for discharge home with advised to discontinue marijuana ingestion.. . 07/27 19:07 Order name: Basic Metabolic Panel; Complete Time: 20:27 ms3 07/27 19:07 Order name: CBC with Diff; Complete Time: 20:27 ms3 07/27 19:07 Order name: LFT's; Complete Time: 20:27 ms3 07/27 19:07 Order name: Magnesium; Complete Time: 20:27 ms3 07/27 19:07 Order name: Troponin HS; Complete Time: 20:27 ms3 07/27 19:07 Order name: XRAY Chest (1 view); Complete Time: 20:02 ms3 07/27 19:07 Order name: EKG; Complete Time: 19:08 ms3 07/27 19:07 Order name: Cardiac monitoring; Complete Time: 19:50 ms3 07/27 19:07 Order name: EKG - Nurse/Tech; Complete Time: 21:31 ms3 07/27 19:07 Order name: IV Saline Lock; Complete Time: 19:50 ms3 07/27 19:07 Order name: Labs collected and sent; Complete Time: 19:50 ms3 07/27 19:07 Order name: O2 Per Protocol; Complete Time: 19:50 ms3 07/27 19:07 Order name: O2 Sat Monitoring; Complete Time: 19:50 ms3 EC:47 Rate is 63 beats/min. Rhythm is regular, Normal Sinus Rhythm. QRS [place] is Normal. SD sp4 interval is normal. QRS interval is normal. QT interval is normal. No Q waves. T waves are Normal. No ST changes noted. Clinical impression: Normal ECG. Interpreted by me. Reviewed by me. Administered Medications: 21:06 Drug: Keppra PO 500 mg PO once Route: PO; me1 21:30 Follow up: Response: No adverse reaction me1 Disposition Summary: 07/27/23 20:39 Discharge Ordered Notes: Location: Home sp4 Problem: new sp4 Symptoms: have improved sp4 Condition: Stable sp4 Diagnosis - Cannabis abuse, uncomplicated sp4 - Dehydration sp4 - Marijuana intoxication sp4 Followup: sp4 - With: Private Physician - When: 7 - 10 days - Reason: Recheck today's complaints Discharge Instructions: - Discharge Summary Sheet sp4 - Cannabis Use Disorder sp4 Forms: - Patient Portal Instructions sp4 Signatures: Dispatcher [employer] EDMS Reinaldo Talavera DO DO ms3 Wilton Morejon MD MD sp4 Natalie Beal RN RN me1 Corrections: (The following items were deleted from the chart) 19:13 19:08 Abdomen Limited+US.RAD.BRZ ordered. EDMS EDMS
--- NOTE | 2023-07-27 20:39 | ER ---
Nurse's Notes [facility] Name: Jax Flynn Age: 73 yrs Sex: Male : 1950 Arrival Date: 07/27/2023 Time: 18:40 Bed 17 Private MD: Diagnosis: Cannabis abuse, uncomplicated;Dehydration;Marijuana intoxication Presentation: 07/27 18:50 Chief complaint: EMS states: toned out for unresponsive male. Patient was alert on EMS me1 arrival and denies losing consciousness. Went outside to smoke and shortly after he was weak, slow to respond with slow speech. BP 90/60- EMS started 18 g to LAC and administered 1 Liter NS. BP increased to 114/68. Patient reports buzzing to bilateral ears. Coronavirus screen: Vaccine status: Patient reports receiving the 2nd dose of the covid vaccine. Ebola Screen: No symptoms or risks identified at this time. Initial Sepsis Screen: Does the patient meet any 2 criteria? No. Patient's initial sepsis screen is negative. Does the patient have a suspected source of infection? No. Patient's initial sepsis screen is negative. Risk Assessment: Do you want to hurt yourself or someone else? Patient reports no desire to harm self or others. Onset of symptoms was July 27, 2023. 18:50 Method Of Arrival: EMS: [facility] 18:50 Acuity: GORDON 3 me1 Triage Assessment: 18:59 General: Appears comfortable, well groomed, well developed, well nourished, Behavior is me1 calm, cooperative, appropriate for age. Pain: Denies pain. Neuro: Level of Consciousness is awake, alert, obeys commands, Oriented to person, place, time, situation, Appropriate for age. Neuro: Reports weakness slow to respond, slow speech.. Cardiovascular: Capillary refill < 3 seconds Patient's skin is warm and dry. Respiratory: Airway is patent Respiratory effort is even, unlabored, Respiratory pattern is regular, symmetrical. Historical: - Allergies: 18:57 No Known Allergies; me1 - Home Meds: 18:57 Keppra Oral [Active]; losartan-hydrochlorothiazide oral [Active]; me1 - PMHx: 18:57 Seizures; memory disorder; Hypertensive disorder; me1 - Immunization history:: Adult Immunizations up to date. - Social history:: Smoking status: Patient reports the use of cigarette tobacco products, smokes one pack cigarettes per day. Patient uses street drugs, marijuana. Screenin:02 [facility] ED Fall Risk Assessment (Adult) History of falling in the last 3 months, me1 including since admission No falls in past 3 months (0 pts) Confusion or Disorientation No (0 pts) Intoxicated or Sedated No (0 pts) Impaired Gait No (0 pts) Mobility Assist Device Used No (0 pt) Altered Elimination No (0 pt) Score/Fall Risk Level 0 - 2 = Low Risk Maintained a safe environment, Provided non-skid footwear, Hourly rounding (assess needs \T\ fall precautionary measures) done. Abuse screen: Denies threats or abuse. Nutritional screening: No deficits noted. Tuberculosis screening: No symptoms or risk factors identified. Assessment: 19:02 General: see triage assessment. . me1 Vital Signs: 18:50 BP 96 / 75; Pulse 64; Resp 16; Temp 98.5(O); Pulse Ox 95% on R/A; Weight 74.84 kg; me1 Height 5 ft. 10 in. ; Pain 0/10; 19:00 BP 115 / 64; Pulse 59; Resp 14; Pulse Ox 99% on R/A; me1 19:00 BP 145 / 88; Pulse 61; Resp 14; Pulse Ox 100% on R/A; me1 19:47 BP 134 / 85; Pulse 64; Resp 18; Pulse Ox 100% on R/A; me1 20:00 BP 145 / 88; Pulse 61; Resp 14; Pulse Ox 100% on R/A; me1 21:00 BP 141 / 91; Pulse 70; Resp 14; Pulse Ox 99% on R/A; me1 21:30 BP 141 / 91; Pulse 67; Resp 15; Pulse Ox 97% on R/A; me1 18:50 Body Mass Index 23.67 (74.84 kg, 177.8 cm) me1 18:50 Pain Scale: Adult me1 [place] Coma Score: 21:47 Eye Response: spontaneous(4). Motor Response: obeys commands(6). Verbal Response: sp4 oriented(5). Total: 15. ED Course: 18:50 Patient arrived in ED. me1 18:50 Reinaldo Talavera DO is Attending Physician. ms3 18:57 Triage completed. me1 18:59 Arm band placed on Patient placed in an exam room. me1 19:02 Patient has correct armband on for positive identification. Bed in low position. Call me1 light in reach. Side rails up X2. Provided Education on: POC. Verbalized understanding. . 19:02 No provider procedures requiring assistance completed. me1 19:20 Natalie Beal, RN is Primary Nurse. me1 19:35 XRAY Chest (1 view) In Process Unspecified. EDMS 19:49 Maintain EMS IV. Dressing intact. Good blood return noted. Site clean \T\ dry. Gauge \T\ me 1 site: 18g LAC. 19:50 Basic Metabolic Panel Sent. me1 19:50 CBC with Diff Sent. me1 19:50 LFT's Sent. me1 19:50 Magnesium Sent. me1 19:50 Troponin HS Sent. me1 20:18 Attending Physician role handed off by Reinaldo Talavera DO ms3 20:18 Wilton Morejon MD is Attending Physician. ms3 21:31 IV discontinued, intact, bleeding controlled, No redness/swelling at site. Pressure me1 dressing applied. Administered Medications: 21:06 Drug: Keppra PO 500 mg PO once Route: PO; me1 21:30 Follow up: Response: No adverse reaction me1 Medication: 19:02 VIS not applicable for this client. me1 Outcome: 20:39 Discharge ordered by . sp4 21:30 Discharged to home ambulatory, me1 21:30 Discharged to home via wheelchair, with family, 21:30 Condition: stable 21:30 Discharge instructions given to patient, family, Instructed on discharge instructions, follow up and referral plans. Demonstrated understanding of instructions, follow-up care, 21:31 Patient left the ED. me1 Signatures: Dispatcher [employer] EDMS Reinaldo Talavera DO DO ms3 Wilton Morejon MD MD sp4 Natalie Beal, RN RN me1
[2023-07-27 23:53] VITALS: TEMP 98.5
[2023-07-28 00:04] VITALS: BP 141/91; O2SAT 97
--- NOTE | 2023-07-29 15:11 | EKG ---
Test Date: 2023-07-27 Test Time: 21:15:00 Supervisor Tank Cleaning: ALEYDA MEASUREMENT RESULTS: Intervals: Rate: 63 DE: 150 QRSD: 84 QT: 424 QTc: 433 [place]: P: 49 DE: 150 QRS: 71 T: 59 INTERPRETIVE STATEMENTS: Normal sinus rhythm Normal ECG Compared to ECG 04/29/2023 17:27:37 Atrial premature complex(es) no longer present Electronically Signed On 07-29-23 15:08:56 SURGEON PARTNER by Joss Nathan
== END ==
LOC: ER 18:40
DX: F12.929 Cannabis use, unspecified with intoxication, unspecified (principal); E86.0 Dehydration; I10 Essential (primary) hypertension; F17.210 Nicotine dependence, cigarettes, uncomplicated
CPT/HCPCS: 36415; 71045; 80048; 80076; 83735; 84484; 85025; 93005; 99284

== ENCOUNTER 2024-01-20 21:18 | Emergency (ER) | payer OTHER ==
[2024-01-20] MEDS ORDERED: NA CHLORIDE 0.9% 1,000 ML ONE (21:43)
[2024-01-20 21:47] LABS: Absolute Basophils 0.1 K/uL (0-0.5); Absolute Eosinophils 0.1 K/uL (0-0.5); Absolute Lymphocytes (CBC) 2.3 K/uL (0.7-4.9); Absolute Monocytes 0.6 K/uL (0.1-1.3); Basophils % 0.7 % (0-1.3); Eosinophils % 1.5 % (0-4.4); Hematocrit 41.8 % (39.6-49.0); Lymphocytes % 28.1 % (15.3-44.8); MCHC 33.4 g/dL (32.0-36.0); MCV 89.7 fL (80-100); MPV 9.7 fL (7.6-11.3); Monocytes % 7.9 % (3.3-12.3); Neutrophils % 61.8 % (41.7-73.7); Platelets 135 thou/uL (152-406); RBC Red Blood Cell Count 4.66 M/uL (4.33-5.43); Red Cell Distribution Width 13.7 % (12.1-15.2)
--- NOTE | 2024-01-20 22:05 | RAD REPORT ---
EXAM DESCRIPTION: CT - Head Brain Wo Cont - 01/20/2024 9:59 pm CLINICAL HISTORY: ams Headache, drowsiness, unresponsive COMPARISON: Head Brain Wo Cont dated 04/29/2023; Head Brain Wo Cont dated 01/05/2021 TECHNIQUE: All CT scans are performed using dose optimization technique as appropriate and may inclu de automated exposure control or mA/KV adjustment according to patient size. FINDINGS: No intracranial hemorrhage, hydrocephalus or extra-axial fluid collection.Mild generalized brain atrophy is present with mild periventricular and deep white matter chronic microvascular ische farida changes.No areas of brain edema or evidence of midline shift. The paranasal sinuses and mastoids are clear. The calvarium is intact. IMPRESSION: No acute intracranial abnormality.
[2024-01-20 22:06] LABS: ALT/SGPT 17 U/L (16-61); Albumin 3.3 g/dL (3.4-5.0); Alkaline Phosphatase 41 U/L (45-117); Anion Gap 6.9 mEq/L (5.0-15.0); BUN Blood Urea Nitrogen 29 mg/dL (7-18); Bicarbonate 27 mEq/L (21-32); Bilirubin Total 0.4 mg/dL (0.2-1.0); Creatine Phosphokinase 54 U/L (39-308); Globulin 3.3 g/dL (2.3-3.5); Glomerular Filtration Rate 41 ml/min (=/>90); Glucose Level 104 mg/dL (74-106); Magnesium 2.3 mg/dL (1.6-2.4); NT PRO-BNP 148 pg/mL (<125); Potassium 3.9 mEq/L (3.5-5.1); Protein, Total 6.6 g/dL (6.4-8.2); Sodium Level 140 mEq/L (136-145); Troponin High Sensitivity 5.8 pg/mL (<58.9)
--- NOTE | 2024-01-20 22:17 | RAD REPORT ---
EXAM DESCRIPTION: RAD - Chest Single View - 01/20/2024 10:08 pm CLINICAL HISTORY: ams Chest pain. COMPARISON: Chest Single View dated 07/27/2023; Chest Single View dated 04/29/2023; Chest Single View dated 01/05/2021; Chest Single View dated 02/14/2020 FINDINGS: Portable technique limits examination quality. The lungs are grossly clear. The heart is normal in size. No displaced fractures. IMPRESSION: No acute intrathoracic process suspected.
[2024-01-20 22:36] LABS: AST/SGOT < 10 U/L (15-37); Bilirubin Direct < 0.2 mg/dL (0-0.2); Bilirubin Indirect, Calculated 0.2 mg/dL (0.2-0.8)
--- NOTE | 2024-01-20 23:39 | ER ---
Nurse's Notes [facility] Name: Jax Flynn Age: 73 yrs Sex: Male : 1950 Arrival Date: 01/20/2024 Time: 21:18 Bed 4 Private MD: Diagnosis: Altered mental status, unspecified Presentation: 01/19 21:21 Chief complaint: EMS states: pt family reports pt was sitting in chair \T\ went lc8 unresponsive. Per EMS upon their arrival pt BP was 58 systolic \T\ had a HR of 52. Pt AAOx4 at this time. VS stable. Coronavirus screen: Client denies travel out of the [place] in the last 14 days. Ebola Screen: Patient negative for fever greater than or equal to 101.5 degrees Fahrenheit, and additional compatible Ebola Virus Disease symptoms Patient denies exposure to infectious person. Patient denies travel to an Ebola-affected area in the 21 days before illness onset. No symptoms or risks identified at this time. Initial Sepsis Screen: Does the patient meet any 2 criteria? No. Patient's initial sepsis screen is negative. Does the patient have a suspected source of infection? No. Patient's initial sepsis screen is negative. Risk Assessment: Do you want to hurt yourself or someone else? Patient reports no desire to harm self or others. Onset of symptoms was January 20, 2024. Care prior to arrival: Medication(s) given: Normal saline infusion, 200 IV initiated. 18 GA, in the left antecubital area, Glucose check: 106. 21:21 Method Of Arrival: EMS: [facility] 21:21 Acuity: GORDON 3 lc8 Triage Assessment: 21:21 General: Appears in no apparent distress. comfortable, Behavior is calm, cooperative. lc8 21:21 Pain: Denies pain. lc8 Historical: - PMHx: 21:30 Seizures; memory disorder; Hypertensive disorder; lc8 - Immunization history:: Adult Immunizations unknown. - Infectious Disease History:: Denies. - Social history:: Smoking status: Patient reports the use of cigarette tobacco products, unknown amount. - Family history:: not pertinent. Screenin:28 [facility] ED Fall Risk Assessment (Adult) History of falling in the last 3 months, rg5 including since admission No falls in past 3 months (0 pts) Confusion or Disorientation No (0 pts) Intoxicated or Sedated No (0 pts) Impaired Gait Yes (1 pt) Mobility Assist Device Used Yes (1 pt) Altered Elimination No (0 pt). Abuse screen: Denies threats or abuse. Nutritional screening: No deficits noted. Tuberculosis screening: No symptoms or risk factors identified. Assessment: 21:28 General: Appears in no apparent distress. Behavior is calm, cooperative, appropriate rg5 for age. Pain: Denies pain. Neuro: Level of Consciousness is awake, alert, obeys commands, Oriented to person, place, time, situation, Aircraft Instrument Engineer are equal bilaterally Reports numbness in right foot and left foot Denies Seizure activity. Cardiovascular: Capillary refill < 3 seconds Rhythm is sinus bradycardia. Respiratory: Airway is patent Trachea midline Breath sounds are clear bilaterally. GI: Abdomen is flat, Abd is soft and non tender X 4 quads. : No signs and/or symptoms were reported regarding the genitourinary system. Musculoskeletal: No signs and/or symptoms reported regarding the musculoskeletal system. 22:48 Reassessment: Patient and/or family updated on plan of care and expected duration. Pain rg5 level reassessed. Patient is alert, oriented x 3, equal unlabored respirations, skin warm/dry/pink. Patient denies pain at this time. 23:59 Reassessment: Patient appears in no apparent distress at this time. Patient and/or bm8 family updated on plan of care and expected duration. Pain level reassessed. Patient is alert, oriented x 3, equal unlabored respirations, skin warm/dry/pink. Patient denies pain at this time. Patient states feeling better. Patient states symptoms have improved. Vital Signs: 21:21 BP 111 / 55 RA Sitting (auto/reg); Pulse 59; Resp 17; Temp 98.5; Pulse Ox 95% on R/A; lc8 Weight 6.8 kg (M); Height 6 ft. 0 in. ; Pain 0/10; 21:28 BP 98 / 76; Pulse 56; Resp 19; Temp 98.5; Pulse Ox 98% on R/A; Pain 0/10; rg5 22:46 BP 125 / 97; Pulse 59; Resp 18; Temp 98.3; Pulse Ox 99% on R/A; Pain 0/10; rg5 23:59 BP 155 / 75; Pulse 58; Resp 18; Temp 98.3; Pulse Ox 100% ; Pain 0/10; bm8 21:21 Body Mass Index 2.03 (6.80 kg, 182.88 cm) lc8 21:21 Pain Scale: Adult lc8 21:28 Pain Scale: Adult rg5 22:46 Pain Scale: Adult rg5 23:59 Pain Scale: Adult bm8 [place] Coma Score: 21:28 Eye Response: spontaneous(4). Motor Response: obeys commands(6). Verbal Response: rg5 oriented(5). Total: 15. 23:59 Eye Response: spontaneous(4). Motor Response: obeys commands(6). Verbal Response: bm8 oriented(5). Total: 15. ED Course: 21:21 Patient arrived in ED. as6 21:21 Arm band placed on. lc8 21:22 Al Gunn MD is Attending Physician. rt 21:23 Leo Damian, RAD is Primary Nurse. rg5 21:28 Patient has correct armband on for positive identification. Bed in low position. Call rg5 light in reach. Side rails up X2. 21:29 Triage completed. lc8 22:01 CT Head Brain wo Cont In Process Unspecified. EDMS 22:09 XRAY Chest (1 view) In Process Unspecified. EDMS 23:59 Provided Education on: post er care. Client placed on continuous cardiac and pulse bm8 oximetry monitoring. NIBP monitoring applied. sales assistants and salespersons on. Pulse ox on. NIBP on. Door closed. Noise minimized. Warm blanket given. Verbal reassurance given. Head of bed elevated. 23:59 No provider procedures requiring assistance completed. Maintain EMS IV. Dressing bm8 intact. Good blood return noted. Site clean \T\ dry. Gauge \T\ site: 18 g. IV discontinued, intact, bleeding controlled, No redness/swelling at site. Pressure dressing applied. Administered Medications: 21:49 Drug: NS 0.9% IV 1000 ml IV at 1 bolus Per protocol; 1000 mL bolus Route: IV; Rate: 1 rg5 bolus; Site: left antecubital; 01/20 00:04 Follow up: IV Status: Completed infusion; IV Intake: 1000ml bm8 Medication: 01/19 21:28 VIS not applicable for this client. rg5 Intake: 01/20 00:04 IV: 1000ml; Total: 1000ml. bm8 Outcome: 01/19 23:38 Discharge ordered by . rt 23:59 Discharged to home via wheelchair, bm8 23:59 Condition: stable 23:59 Discharge instructions given to patient, family, Instructed on discharge instructions, follow up and referral plans. medication usage, safety practices, Demonstrated understanding of instructions, follow-up care, medications, 01/20 00:04 Patient left the ED. bm8 Signatures: Dispatcher [employer] EDMS Lukas Martinez, RN RN as6 Al Gunn MD MD rt Greg Saldana, RN RN bm8 Leo Damian, RN RN rg5 Matti Lozano, RN RN lc8
--- NOTE | 2024-01-20 23:39 | EDPHYS ---
Physician Documentation [facility] Name: Jax Flynn Age: 73 yrs Sex: Male : 1950 Arrival Date: 01/20/2024 Time: 21:18 Bed 4 Private MD: ED Physician Al Gunn HPI: 01/19 21:51 This 73 yrs old Male presents to ER via EMS with complaints of ams. rt 21:51 Patient presents to the ED with altered mental status, reported hypotension. Unclear rt how long patient has been unresponsive for. IV fluids were given, patient had improvement of mentation as well as blood pressure. Patient states that he feels "funny" but denies other acute complaints including pain, shortness of breath, nausea, dizziness. Denies other acute complaints, recent illness, symptoms are moderate in severity, no other aggravating alleviating factors.. Historical: - PMHx: 21:30 Seizures; memory disorder; Hypertensive disorder; lc8 - Immunization history:: Adult Immunizations unknown. - Infectious Disease History:: Denies. - Social history:: Smoking status: Patient reports the use of cigarette tobacco products, unknown amount. - Family history:: not pertinent. ROS: 21:51 Constitutional: Negative for fever, chills, and weight loss, Cardiovascular: Negative rt for chest pain, palpitations, and edema, Respiratory: Negative for shortness of breath, cough, wheezing, and pleuritic chest pain, Abdomen/GI: Negative for abdominal pain, nausea, vomiting, diarrhea, and constipation, MS/Extremity: Negative for injury and deformity, Skin: Negative for injury, rash, and discoloration, 21:51 Neuro: Positive for altered mental status, Negative for dizziness, Exam: 21:51 Constitutional: This is a well developed, well nourished patient who is awake, alert, rt and in no acute distress. Head/Face: Normocephalic, atraumatic. Chest/axilla: Normal chest wall appearance and motion. Nontender with no deformity. No lesions are appreciated. Cardiovascular: Regular rate and rhythm with a normal S1 and S2. No gallops, murmurs, or rubs. Normal PMI, no JVD. No pulse deficits. Respiratory: Lungs have equal breath sounds bilaterally, clear to auscultation and percussion. No rales, rhonchi or wheezes noted. No increased work of breathing, no retractions or nasal flaring. Abdomen/GI: Soft, non-tender, with normal bowel sounds. No distension or tympany. No guarding or rebound. No evidence of tenderness throughout. Skin: Warm, dry with normal turgor. Normal color with no rashes, no lesions, and no evidence of cellulitis. MS/ Extremity: Pulses equal, no cyanosis. Neurovascular intact. Full, normal range of motion. Neuro: Awake and alert, GCS 15, oriented to person, place, time, and situation. Cranial nerves II-XII grossly intact. Motor strength 5/5 in all extremities. Sensory grossly intact. Cerebellar exam normal. Normal gait. 21:51 ECG was reviewed by the Attending Physician. Vital Signs: 21:21 BP 111 / 55 RA Sitting (auto/reg); Pulse 59; Resp 17; Temp 98.5; Pulse Ox 95% on R/A; lc8 Weight 6.8 kg (M); Height 6 ft. 0 in. ; Pain 0/10; 21:28 BP 98 / 76; Pulse 56; Resp 19; Temp 98.5; Pulse Ox 98% on R/A; Pain 0/10; rg5 22:46 BP 125 / 97; Pulse 59; Resp 18; Temp 98.3; Pulse Ox 99% on R/A; Pain 0/10; rg5 23:59 BP 155 / 75; Pulse 58; Resp 18; Temp 98.3; Pulse Ox 100% ; Pain 0/10; bm8 21:21 Body Mass Index 2.03 (6.80 kg, 182.88 cm) lc8 21:21 Pain Scale: Adult lc8 21:28 Pain Scale: Adult rg5 22:46 Pain Scale: Adult rg5 23:59 Pain Scale: Adult bm8 [place] Coma Score: 21:28 Eye Response: spontaneous(4). Motor Response: obeys commands(6). Verbal Response: rg5 oriented(5). Total: 15. 23:59 Eye Response: spontaneous(4). Motor Response: obeys commands(6). Verbal Response: bm8 oriented(5). Total: 15. MDM: 21:22 Patient medically screened. rt 23:39 Differential Diagnosis AMS, dysrhythmia, electrolyte disturbance, dehydration. Data rt reviewed: vital signs, nurses notes, lab test result(s), EKG, radiologic studies. Consideration of Admission/Observation Escalation of care including admission/observation considered. Discussed admission with the patient, states that he strongly wishes to go home. States that symptoms have completely resolved, vital signs remained stable in the ED. Discussed findings of mild elevated creatinine with the patient, he will follow-up as an outpatient. Strict return precautions were discussed.. I considered the following discharge prescriptions or medication management in the emergency department Medications were administered in the Emergency Department. See MAR. Independent interpretation of the following test(s) in the Emergency Department CT Scan: My interpretation is No intracranial hemorrhage seen on interpretation of CT scan images. Care significantly affected by the following chronic conditions: Hypertension, Seizure disorder. Counseling: I had a detailed discussion with the patient and/or guardian regarding the historical points, exam findings, and any diagnostic results supporting the discharge/admit diagnosis, lab results, radiology results, the need for outpatient follow up, to return to the emergency department if symptoms worsen or persist or if there are any questions or concerns that arise at home. Response to treatment: the patient's symptoms have resolved after treatment. 01/19 21:28 Order name: Basic Metabolic Panel; Complete Time: 23:30 rt 01/19 21:28 Order name: CBC with Diff; Complete Time: 22:06 rt 01/19 21:28 Order name: LFT's; Complete Time: 23:30 rt 01/19 21:28 Order name: Magnesium; Complete Time: 23:30 rt 01/19 21:28 Order name: NT PRO-BNP; Complete Time: 23:30 rt 01/19 21:28 Order name: Troponin HS; Complete Time: 23:30 rt 01/19 21:29 Order name: CPK; Complete Time: 23:30 rt 01/19 21:28 Order name: XRAY Chest (1 view); Complete Time: 22:18 rt 01/19 21:28 Order name: CT Head Brain wo Cont; Complete Time: 22: rt 01/19 21:28 Order name: Cardiac monitoring; Complete Time: :52 rt 01/19 21:28 Order name: EKG - Nurse/Tech; Complete Time: :52 rt 01/19 21:28 Order name: IV Saline Lock; Complete Time: :53 rt 01/19 21:28 Order name: Labs collected and sent; Complete Time: :53 rt 01/19 21:28 Order name: O2 Per Protocol; Complete Time: :53 rt 01/19 21:28 Order name: O2 Sat Monitoring; Complete Time: 21:53 rt EC:51 Rate is 59 beats/min. Rhythm is regular, Sinus bradycardia with No ectopy. QRS [place] is rt Normal. MI interval is normal. QRS interval is normal. QT interval is normal. No Q waves. T waves are Normal. No ST changes noted. Interpreted by me. Administered Medications: 21:49 Drug: NS 0.9% IV 1000 ml IV at 1 bolus Per protocol; 1000 mL bolus Route: IV; Rate: 1 rg5 bolus; Site: left antecubital; 01/20 00:04 Follow up: IV Status: Completed infusion; IV Intake: 1000ml bm8 Disposition Summary: 01/20/24 23:38 Discharge Ordered Notes: Location: Home rt Problem: new rt Symptoms: are resolved rt Condition: Stable rt Diagnosis - Altered mental status, unspecified rt Followup: rt - With: Private Physician - When: 2 - 3 days - Reason: Discharge Instructions: - Discharge Summary Sheet rt - Confusion rt Forms: - Medication Reconciliation Form rt - Antibiotic Education rt - Prescription Opioid Use rt - Patient Portal Instructions rt - Leadership Thank You Letter rt Signatures: Dispatcher [employer] EDAl Davis MD MD rt Leo Damian, RN RN rg5 Matti Lozano RN RN lc8 Greg Saldana RN bm8 Corrections: (The following items were deleted from the chart) 01/19 21:29 21:29 BASIC METABOLIC PANEL+C.LAB.BRZ ordered. EDVA EDMS 21:29 21:29 CBC+H.LAB.BRZ ordered. EDVA EDVA 21:29 21:29 HEPATIC FUNCTION+C.LAB.BRZ ordered. EDVA EDMS 21:29 21:29 MAGNESIUM+C.LAB.BRZ ordered. EDVA EDVA :29 21:29 PROBNP+C.LAB.BRZ ordered. EDVA EDVA 21:29 21:29 Troponin High Sensitivity+C.LAB.BRZ ordered. EDVA EDVA 21:29 21:29 Urinalysis W/Microscopic+U.LAB.BRZ ordered. EDVA EDVA :29 21:29 CREATINE PHOSPHOKINASE+C.LAB.BRZ ordered. [facility] EDMS :29 Chest Single View+RAD.RAD.BRZ ordered. EDMS EDMS : Head Brain Wo Cont+CT.RAD.BRZ ordered. EDMS EDMS
[2024-01-21 00:55] VITALS: BP 155/75; TEMP 98.3; O2SAT 100
--- NOTE | 2024-01-23 15:00 | EKG ---
Test Date: 2024-01-20 Test Time: 21:16:31 Allergist/Md: BARB MEASUREMENT RESULTS: Intervals: Rate: 59 [place]: 122 QRSD: 84 QT: 436 QTc: 431 [place]: P: 4 KS: 122 QRS: 74 T: 76 INTERPRETIVE STATEMENTS: Sinus bradycardia Otherwise normal ECG Compared to ECG 07/27/2023 21:15:00 Sinus rhythm no longer present Electronically Signed On 01-23-24 14:53:11 CDT by Joss Nathan
== END 2024-01-21 00:04 | disposition home or self-care (01) ==
LOC: ER 21:18
DX: R41.82 Altered mental status, unspecified (principal)
CPT/HCPCS: 96361; 93005; 85025; 80048; 36415; 83735; 82550; 80076; 84484; 83880; 70450; 71045; 96360; 99285; J7030

== ENCOUNTER 2024-06-04 12:46 | Emergency (ER) | payer OTHER ==
[2024-06-04] MEDS ORDERED: NA CHLORIDE 0.9% 1,000 ML ONE (13:04)
[2024-06-04 13:41] LABS: Absolute Eosinophils 0.1 K/uL (0-0.5); Absolute Monocytes 0.3 K/uL (0.1-1.3); Absolute Neutrophil 3.5 K/uL (1.8-8.0); Basophils % 0.7 % (0-1.3); Eosinophils % 1.3 % (0-4.4); Hematocrit 42.8 % (39.6-49.0); Hemoglobin 14.1 g/dL (13.6-17.9); Lymphocytes % 20.1 % (15.3-44.8); MCH 29.9 pg (27.0-35.0); MCHC 32.9 g/dL (32.0-36.0); MPV 10.5 fL (7.6-11.3); Monocytes % 5.5 % (3.3-12.3); Neutrophils % 72.4 % (41.7-73.7); Platelets 114 thou/uL (152-406); RBC Red Blood Cell Count 4.71 M/uL (4.33-5.43); Red Cell Distribution Width 14.3 % (12.1-15.2)
--- NOTE | 2024-06-04 13:43 | RAD REPORT ---
EXAM: CT brain without contrast HISTORY: Confusion COMPARISON: January 2024 TECHNIQUE: Multiple contiguous axial images were obtained and a CT of the brain without contrast.. Sagittal and coronal reconstruction performed. Automated exposure control, adjustment of the mA and/or kV according to patient size, and/or iterative reconstruction. Unless otherwise specified, incidental f indings do not require dedicated imaging follow-u FINDINGS: An intracranial bleed is not seen Ventricles are normal caliber No extra-axial fluid collection noted Mild low-density within periventricular, deep and subcortical white matter probably ischemic changes secondary to small vessel disease No fluid within the visualized sinuses or mastoids noted. Mild chronic sinusitis IMPRESSION: No acute intracranial abnormality noted. If the patient's symptoms persist MRI of the brain would be recommended.
[2024-06-04 13:48] LABS: PT Prothrombin Time 11.4 SECONDS (9.4-12.5); Protime INR 1.02
--- NOTE | 2024-06-04 13:55 | RAD REPORT ---
Procedure: Chest Single View HISTORY: Weakness COMPARISON: January 2024 FINDINGS: The lungs appear clear of acute infiltrate. No significant pleural effusion noted. The heart is normal size. IMPRESSION: No acute abnormality is displayed.
[2024-06-04 14:00] LABS: Albumin 3.3 g/dL (3.4-5.0); Albumin/Globulin Ratio 1.1 (1.1-1.8); Anion Gap 3.5 mEq/L (5.0-15.0); Bilirubin Total 0.5 mg/dL (0.2-1.0); Globulin 2.9 g/dL (2.3-3.5); Potassium 4.5 mEq/L (3.5-5.1); Protein, Total 6.2 g/dL (6.4-8.2); Troponin High Sensitivity 6.1 pg/mL (<58.9)
[2024-06-04 14:58] LABS: Specific Gravity 1.017 (1.005-1.030); Sqamous Epithelial None Seen /HPF (None Seen); Urine Bacteria None Seen /HPF (<20); Urine Bilirubin NEGATIVE (Negative); Urine Blood Negative (Negative); Urine Clarity Clear (Clear); Urine Color Light-Yellow (Yellow); Urine Culture Reflex Order NOT NEEDED; Urine Glucose NEGATIVE (Negative); Urine Ketones NEGATIVE (Negative); Urine Microscopic Reflex YN ORDER UMIC; Urine Mucus Slight /HPF (None Seen); Urine Nitrite NEGATIVE (Negative); Urine Protein NEGATIVE (Negative); Urine RBC <5 /HPF (None Seen); Urine Urobilinogen Normal (Normal); Urine WBC None Seen /HPF (<5); Urine pH 5.5 (5.0-7.0)
--- NOTE | 2024-06-04 15:18 | ER ---
Nurse's Notes [facility] Name: Jax Flynn Age: 74 yrs Sex: Male : 1950 Arrival Date: 06/04/2024 Time: 12:46 Bed 14 Private MD: Diagnosis: Generalized weakness Presentation: 06/04 12:52 Chief complaint: EMS states: EMS called because pt became weak, fell onto his knees and ph had trouble getting back up, initial BP for EMS 80s/40s, IV established to RAC, 400 mL bolus given, BP improved to 90s systolic RECYCLING SORTER. Pt denies fever or recent illness, states that he feels weak and his mouth feels dry. Coronavirus screen: Vaccine status: Patient reports being unvaccinated. Ebola Screen: No symptoms or risks identified at this time. Initial Sepsis Screen: Does the patient meet any 2 criteria? No. Patient's initial sepsis screen is negative. Does the patient have a suspected source of infection? No. Patient's initial sepsis screen is negative. Risk Assessment: Do you want to hurt yourself or someone else? Patient reports no desire to harm self or others. Onset of symptoms was June 04, 2024. 12:52 Method Of Arrival: EMS: [facility] 12:52 Acuity: GORDON 2 ph Triage Assessment: 12:55 General: Appears in no apparent distress. Behavior is calm, cooperative. Pain: Denies ph pain. Neuro: Level of Consciousness is awake, Oriented to person, place, time, situation, Reports weakness. Cardiovascular: Respiratory: Airway is patent Respiratory effort is even, unlabored, Respiratory pattern is regular, symmetrical. GI: Patient currently denies abdominal pain, nausea, vomiting. Derm: Skin is pink, warm \T\ dry. Musculoskeletal: Circulation, motion, and sensation intact. Range of motion: intact in all extremities. Historical: - Allergies: 12:55 No Known Allergies; ph - Home Meds: 12:56 Keppra Oral [Active]; losartan-hydrochlorothiazide oral [Active]; ph - PMHx: 12:55 Hypertensive disorder; memory disorder; Seizures; ph - Immunization history:: Adult Immunizations unknown. - Infectious Disease History:: Denies. - Social history:: Smoking status: Patient reports the use of cigarette tobacco products, smokes one-half pack cigarettes per day. Screenin:35 [facility] ED Fall Risk Assessment (Adult) History of falling in the last 3 months, ph including since admission Yes- physiologic fall (2 pts) Confusion or Disorientation No (0 pts) Intoxicated or Sedated No (0 pts) Impaired Gait No (0 pts) Mobility Assist Device Used No (0 pt) Altered Elimination No (0 pt) Score/Fall Risk Level 0 - 2 = Low Risk Oriented to surroundings, Maintained a safe environment, Provided non-skid footwear. Abuse screen: Denies threats or abuse. Denies injuries from another. Nutritional screening: No deficits noted. Tuberculosis screening: No symptoms or risk factors identified. Assessment: 14:37 Reassessment: Patient appears in no apparent distress at this time. Patient and/or ph family updated on plan of care and expected duration. Pain level reassessed. Patient is alert, oriented x 3, equal unlabored respirations, skin warm/dry/pink. Vital Signs: 12:52 BP 96 / 61; Pulse 48; Resp 18; Temp 97.8; Pulse Ox 96% on R/A; Weight 65.77 kg; Height ph 5 ft. 9 in. ; 13:30 BP 111 / 66; Pulse 42; Resp 18; Pulse Ox 99% on R/A; ph 14:00 BP 124 / 68; Pulse 46; Resp 18; Pulse Ox 99% on R/A; ph 14:33 BP 150 / 76; Pulse 44; Resp 18; Pulse Ox 98% on R/A; ph 15:00 BP 122 / 81; Pulse 44; Resp 18; Pulse Ox 99% on R/A; ph 15:30 BP 122 / 79; Pulse 54; Resp 16; Temp 97.8; Pulse Ox 98% on R/A; ph 12:52 Body Mass Index 21.41 (65.77 kg, 175.26 cm) ph ED Course: 12:52 Patient arrived in ED. ph 12:52 Satya Smith MD is Attending Physician. sp3 12:55 Triage completed. ph 12:57 Arm band placed on Patient placed in an exam room, on a stretcher, on desk monitor, ph on pulse oximetry. 13:05 Alycia London, RN is Primary Nurse. ph 13:11 CT Head Brain wo Cont In Process Unspecified. EDMS 13:25 Initial lab(s) drawn, by me, sent to lab. First set of blood cultures drawn by me. ph 13:31 Protime (+inr) Sent. ph 13:31 Lactate w/ 2H reflex if indic. Sent. ph 13:31 CMP Sent. ph 13:31 CBC with Diff Sent. ph 13:31 Troponin High Sensitivity Sent. ph 13:31 Inserted saline lock: 20 gauge in right antecubital area, using aseptic technique. ph Blood collected. Flushed with 10 mL NS. 13:32 Maintain EMS IV. Dressing intact. Good blood return noted. Site clean \T\ dry. Gauge \T\ ph site: 20 LAC. Flushed with 10 mL NS. 13:36 Chest Single View XRAY In Process Unspecified. EDMS 14:38 Patient has correct armband on for positive identification. Bed in low position. Call ph light in reach. Side rails up X 1. desk monitor on. Pulse ox on. NIBP on. Door closed. Noise minimized. Warm blanket given. 14:38 No provider procedures requiring assistance completed. ph 16:08 IV discontinued, intact, bleeding controlled, No redness/swelling at site. Pressure ph dressing applied. Administered Medications: 13:30 Drug: NS 0.9% IV (30 ml/kg) 30 ml/kg IV at bolus once; Sepsis Protocol; to be given as ph a bolus over 90 minutes Route: IV; Rate: bolus; Site: right antecubital; 15:44 Follow up: Response: No adverse reaction; IV Status: Completed infusion; IV Intake: ph 1000ml ; received 1L from EMS Medication: 14:37 VIS not applicable for this client. ph Intake: 15:44 IV: 1000ml; Total: 1000ml. ph Outcome: 15:18 Discharge ordered by MD. [email or web address] 16:08 Discharged to home ambulatory, with family, ph 16:08 Condition: good 16:08 Discharge instructions given to patient, family, Instructed on discharge instructions, follow up and referral plans. Demonstrated understanding of instructions, follow-up care, 16:09 Patient left the ED. ph Signatures: Dispatcher [employer] Alycia Davis RN RN ph Satya Smith MD MD sp3 Corrections: (The following items were deleted from the chart) 15:45 15:00 Response: No adverse reaction; IV Status: Completed infusion ph ph
--- NOTE | 2024-06-04 15:18 | EDPHYS ---
Physician Documentation [facility] Name: Jax Flynn Age: 74 yrs Sex: Male : 1950 Arrival Date: 06/04/2024 Time: 12:46 Bed 14 Private MD: ED Physician Satya Smith HPI: 06/04 13:13 This 74 yrs old Male presents to ER via EMS with complaints of General Weakness. sp3 13:13 74-year-old male with history of hypertension, memory disorder, prior seizures now sp3 presents to the ED via EMS for altered mental status and generalized weakness. Patient's children found patient extremely weak and activated EMS. History, physical and ROS otherwise severely limited secondary to patient's memory and decreased speaking. Per EMS, no signs of trauma or other neglect on site.. Historical: - Allergies: 12:55 No Known Allergies; ph - Home Meds: 12:56 Keppra Oral [Active]; losartan-hydrochlorothiazide oral [Active]; ph - PMHx: 12:55 Hypertensive disorder; memory disorder; Seizures; ph - Immunization history:: Adult Immunizations unknown. - Infectious Disease History:: Denies. - Social history:: Smoking status: Patient reports the use of cigarette tobacco products, smokes one-half pack cigarettes per day. ROS: 13:14 Unable to obtain ROS due to altered mental status, baseline dementia, sp3 Exam: 13:14 Constitutional: This is a well developed, well nourished patient who is awake, alert, sp3 and in no acute distress. Head/Face: Normocephalic, atraumatic. Eyes: Pupils equal round and reactive to light, extra-ocular motions intact. Lids and lashes normal. Conjunctiva and sclera are non-icteric and not injected. Cornea within normal limits. Periorbital areas with no swelling, redness, or edema. ENT: Nares patent. No nasal discharge, no septal abnormalities noted. External auditory canals are clear. Oropharynx with no redness, swelling, or masses, exudates, or evidence of obstruction, uvula midline. Mucous membranes moist. Neck: Trachea midline, no thyromegaly or masses palpated, and no cervical lymphadenopathy. Supple, full range of motion without nuchal rigidity, or vertebral point tenderness. No Meningismus. Chest/axilla: Normal chest wall appearance and motion. Nontender with no deformity. No lesions are appreciated. Cardiovascular: Regular rate and rhythm with a normal S1 and S2. No gallops, murmurs, or rubs. Normal PMI, no JVD. No pulse deficits. Respiratory: Lungs have equal breath sounds bilaterally, clear to auscultation and percussion. No rales, rhonchi or wheezes noted. No increased work of breathing, no retractions or nasal flaring. Abdomen/GI: Soft, non-tender, with normal bowel sounds. No distension or tympany. No guarding or rebound. No evidence of tenderness throughout. Back: No spinal tenderness. No costovertebral tenderness. Full range of motion. Skin: Warm, dry with normal turgor. Normal color with no rashes, no lesions, and no evidence of cellulitis. MS/ Extremity: Pulses equal, no cyanosis. Neurovascular intact. Full, normal range of motion. Psych: Awake, alert, with orientation to person, place and time. Behavior, mood, and affect are within normal limits. 13:14 Neuro: Grossly intact with no focal deficits noted. Cranial nerves III through XII appear to be intact when patient cooperates. Patient is slow to respond but does in fact respond. Stroke scale is 0., 13:52 ECG was reviewed by the Attending Physician. EKG demonstrates sinus bradycardia 43 bpm sp3 with normal intervals, normal QRS, normal axis nonspecific diffuse ST's ST changes without evidence of acute ischemia. Vital Signs: 12:52 BP 96 / 61; Pulse 48; Resp 18; Temp 97.8; Pulse Ox 96% on R/A; Weight 65.77 kg; Height ph 5 ft. 9 in. ; 13:30 BP 111 / 66; Pulse 42; Resp 18; Pulse Ox 99% on R/A; ph 14:00 BP 124 / 68; Pulse 46; Resp 18; Pulse Ox 99% on R/A; ph 14:33 BP 150 / 76; Pulse 44; Resp 18; Pulse Ox 98% on R/A; ph 15:00 BP 122 / 81; Pulse 44; Resp 18; Pulse Ox 99% on R/A; ph 15:30 BP 122 / 79; Pulse 54; Resp 16; Temp 97.8; Pulse Ox 98% on R/A; ph 12:52 Body Mass Index 21.41 (65.77 kg, 175.26 cm) ph MDM: 12:52 Medical Screening Exam initiated sp3 13:18 Data reviewed: vital signs, nurses notes, EMS record, old medical records, lab test sp3 result(s), EKG, radiologic studies. ED course: 74-year-old male with PMH above now with altered mental status and generalized weakness. Differential diagnosis is broad and includes TIA/CVA spectrum, ACS, infection including UTI and pneumonia Electrolyte abnormality, among others. Workup will include CT scan of the head, EKG, chest x-ray general labs UA and supportive care. Disposition pending workup and patient course.. 15:15 ED course: Full workup negative including CT head. Patient is now alert and oriented sp3 and in no acute distress. Family states he is doing much better and is at his baseline. Heart rate in the 48-52 range. Blood pressure 120 systolic.. 06/04 12:53 Order name: Blood Culture Adult (2) sp3 06/04 12:53 Order name: CBC with Diff; Complete Time: 13:52 sp3 06/04 12:53 Order name: CMP; Complete Time: 15:01 sp3 06/04 12:53 Order name: Lactate w/ 2H reflex if indic.; Complete Time: 15:01 sp3 06/04 12:53 Order name: Protime (+inr); Complete Time: 13:52 sp3 06/04 12:53 Order name: Urinalysis w/ reflexes; Complete Time: 15:01 sp3 06/04 12:53 Order name: Troponin High Sensitivity; Complete Time: 15:01 sp3 06/04 12:53 Order name: Chest Single View XRAY; Complete Time: 13:55 sp3 06/04 12:53 Order name: CT Head Brain wo Cont; Complete Time: 13:52 sp3 06/04 12:53 Order name: Cardiac monitoring; Complete Time: 14:06 sp3 06/04 12:53 Order name: EKG - Nurse/Tech; Complete Time: 14:06 sp3 06/04 12:53 Order name: IV Saline Lock - Large Bore; Complete Time: 13:30 sp3 06/04 12:53 Order name: Labs collected and sent; Complete Time: 13:30 sp3 06/04 12:53 Order name: O2 Per Protocol; Complete Time: 13:30 sp3 06/04 12:53 Order name: O2 Sat Monitoring; Complete Time: 13:30 sp3 06/04 12:53 Order name: Vital Signs; Complete Time: 13:30 sp3 Administered Medications: 13:30 Drug: NS 0.9% IV (30 ml/kg) 30 ml/kg IV at bolus once; Sepsis Protocol; to be given as ph a bolus over 90 minutes Route: IV; Rate: bolus; Site: right antecubital; 15:44 Follow up: Response: No adverse reaction; IV Status: Completed infusion; IV Intake: ph 1000ml ; received 1L from EMS Disposition Summary: 06/04/24 15:18 Discharge Ordered Notes: Location: Home sp3 Condition: Stable sp3 Diagnosis - Generalized weakness sp3 Followup: sp3 - With: Private Physician - When: Upon discharge from the Emergency Department - Reason: Continuance of care Discharge Instructions: - Discharge Summary Sheet sp3 - Weakness sp3 Forms: - Medication Reconciliation Form sp3 - Antibiotic Education sp3 - Prescription Opioid Use sp3 - Patient Portal Instructions sp3 - Leadership Thank You Letter sp3 Signatures: Dispatcher [employer] EDAlycia Hawkins RN RN Satya Mir MD MD sp3 Corrections: (The following items were deleted from the chart) 12:54 12:54 BLOOD CULTURE*+BA.LAB.BRZ ordered. EDMS EDMS 12:54 12:54 CBC+H.LAB.BRZ ordered. EDMS EDMS 12:54 12:54 COMPREHENSIVE METABOLIC PANEL+C.LAB.BRZ ordered. EDMS EDMS 12:54 12:54 LACTATE+C.LAB.BRZ ordered. EDMS EDMS 12:54 12:54 PROTIME (+INR)+COAG.LAB.BRZ ordered. EDMS EDMS 12:54 12:54 Urinalysis+U.LAB.BRZ ordered. EDMS EDMS 12:54 12:54 Troponin High Sensitivity+C.LAB.BRZ ordered. EDMS EDMS 12:54 12:54 Chest Single View+RAD.RAD.BRZ ordered. EDMS EDMS 12:54 12:54 Head Brain Wo Cont+CT.RAD.BRZ ordered. EDMS EDMS
[2024-06-04 16:22] VITALS: TEMP 97.8
[2024-06-04 16:42] VITALS: BP 122/79; O2SAT 98
--- NOTE | 2024-06-06 14:56 | EKG ---
Test Date: 2024-06-04 Test Time: 13:48:18 Maintenance Equipment Operator: PH MEASUREMENT RESULTS: Intervals: Rate: 43 ND: 144 QRSD: 78 QT: 484 QTc: 408 [place]: P: 43 ND: 144 QRS: 64 T: 33 INTERPRETIVE STATEMENTS: Marked sinus bradycardia Septal infarct, age undetermined Abnormal ECG Compared to ECG 01/20/2024 21:16:31 Myocardial infarct finding now present Electronically Signed On 06-06-24 14:48:20 CDT by Joss Nathan
== END 2024-06-04 16:09 | disposition home or self-care (01) ==
LOC: ER 12:46
DX: R53.1 Weakness (principal); R41.82 Altered mental status, unspecified; I10 Essential (primary) hypertension; F17.210 Nicotine dependence, cigarettes, uncomplicated
CPT/HCPCS: 93005; 87040 ×2; 85025; 81001; 36415; 85610; 83605; 84484; 80053; 70450; 71045; J7030; 96365; 96366; 99285